=== PATIENT | female | born 1945 | race Caucasian/White ===

== ENCOUNTER 2016-09-29 23:16 | Emergency (ER) | payer MEDICARE, MEDICAID ==
[~2016-09-29] VITALS: Ht 167.6 cm; Wt 90.7 kg
[~2016-09-29 23:16] MED LIST: CIPRO500 MG PO; FLAGYL500 MG PO
[2016-09-29 23:39] LABS: BASO # 0.1 10*3/uL (0.0-0.1); BASO % 1.4 % (0.0-1.0); EOS # 0.3 10*3/uL (0.0-0.4); EOS % 2.8 % (1.0-4.0); HEMATOCRIT 44.8 % (37.0-47.0); HEMOGLOBIN 14.8 g/dl (12.0-16.0); LYMPH # 3.1 10*3/uL (1.3-4.4); LYMPH % 33.2 % (27.0-41.0); MEAN CELL VOLUME 88.7 fl (81.0-99.0); MEAN CORPUSCULAR HGB 29.3 pg (27.0-31.0); MEAN PLATELET VOLUME 9.8 fl (9.6-12.3); MONO # 0.7 10*3/uL (0.1-1.0); MONO % 7.2 % (3.0-9.0); NEUT # 5.2 10*3/uL (2.3-7.9); PLATELET COUNT AUTOMATED 188 10*3/uL (130-400); RED BLOOD COUNT 5.05 10*6/uL (4.10-5.10); RED CELL DISTRI WIDTH 14.1 % (0-14.5); WHITE BLOOD COUNT 9.4 10*3/uL (4.8-10.8)
[2016-09-29 23:55] LABS: ALBUMIN 3.7 gm/dl (3.1-4.5); ALKALINE PHOSPHATASE 98 U/L (45-117); BILIRUBIN, TOTAL 0.3 mg/dl (0.2-1.0); BUN 14 mg/dl (7-24); CARBON DIOXIDE 25 mmol/L (21-32); CHLORIDE 108 mmol/L (98-107); EST GLOM FILT AFRICAN AMERICAN > 60 ml/min; GLUCOSE 118 mg/dL (65-99); POTASSIUM 3.9 mmol/L (3.5-5.1); SGOT/AST 17 IU/L (3-35); SGPT/ALT 24 U/L (12-78); SODIUM 142 mmol/L (136-145); TOTAL PROTEIN 7.7 gm/dL (6.4-8.2)
[2016-09-30] MEDS ORDERED: PERCOCET 325 MG1 TA2 PO (00:38)
[2016-09-30] MEDS ORDERED: MACROBID100 M1 PO (00:38)
[2016-09-30] MEDS ORDERED: FLOMAX0.4 MG PO (00:38)
[2016-09-30] MEDS ORDERED: ZOFRAN4 MG PO (00:38)
[2016-09-30 01:30] LABS: BILIRUBIN NEGATIVE (NEGATIVE); BLOOD TRACE-INTACT (NEGATIVE); CLARITY CLEAR (CLEAR); COLOR YELLOW (YELLOW); GLUCOSE NEGATIVE (NEGATIVE); KETONE NEGATIVE (NEGATIVE); LEUKO ESTERASE NEGATIVE (NEGATIVE); NITRITE NEGATIVE (NEGATIVE); PH 6.5 (5.0-9.0); PROTEIN NEGATIVE (NEGATIVE); UROBILINOGEN 0.2 E.U./dl (0.2-1.0)
[2016-09-30 01:38] LABS: EPITHELIAL CELLS 0-5; RBC 0-2 rbc/hpf (0-2); URINE REFLEX COMMENT NO (NO)
[2016-10-14] MEDS ORDERED: PERCOCET 325 MG1 TA2 PO (17:58)
== END 2016-09-30 01:18 | disposition home or self-care (01) ==
LOC: ED 23:16
PROVIDERS: Nurse Practitioner Family
DX: N20.0 Calculus of kidney (principal); N13.30 Unspecified hydronephrosis; R03.0 Elevated blood-pressure reading, without diagnosis of hypertension; Z85.038 Personal history of other malignant neoplasm of large intestine

== ENCOUNTER 2016-10-09 19:54 | Emergency (ER) | payer MEDICARE, MEDICAID ==
[~2016-10-09] VITALS: Ht 165.1 cm; Wt 72.6 kg
[~2016-10-09 19:54] MED LIST changes: +FLOMAX0.4 MG PO; +MACROBID100 M1 PO; +PERCOCET 325 MG1 TA2 PO; +ZOFRAN4 MG PO
[2016-10-09] MEDS ORDERED: PERCOCET 325 MG1 TA2 PO (20:30)
[2016-10-14] MEDS ORDERED: PERCOCET 325 MG1 TA2 PO (17:58)
== END 2016-10-09 20:38 | disposition home or self-care (01) ==
LOC: ED 19:54
DX: G89.29 Other chronic pain (principal); M54.5 Low back pain; C34.90 Malignant neoplasm of unspecified part of unspecified bronchus or lung; F17.200 Nicotine dependence, unspecified, uncomplicated; Z87.442 Personal history of urinary calculi

== ENCOUNTER 2016-10-16 15:02 | Emergency (ER) | payer MEDICARE, MEDICAID ==
[~2016-10-16] VITALS: Ht 165.1 cm; Wt 72.6 kg
[2016-10-16] MEDS ORDERED: ACETAMINOPHEN-O1 TAB PO (15:23)
[2016-10-16 15:54] LABS: BASO # 0.1 10*3/uL (0.0-0.1); BASO % 1.2 % (0.0-1.0); EOS # 0.3 10*3/uL (0.0-0.4); EOS % 3.6 % (1.0-4.0); HEMATOCRIT 42.7 % (37.0-47.0); HEMOGLOBIN 13.7 g/dl (12.0-16.0); LYMPH # 2.2 10*3/uL (1.3-4.4); LYMPH % 25.9 % (27.0-41.0); MEAN CELL VOLUME 90.3 fl (81.0-99.0); MEAN CORPUSCULAR HGB CONC 32.1 g/dl (33.0-37.0); MEAN PLATELET VOLUME 9.7 fl (9.6-12.3); MONO # 0.5 10*3/uL (0.1-1.0); MONO % 6.2 % (3.0-9.0); NEUT # 5.4 10*3/uL (2.3-7.9); NEUT % 62.7 % (47.0-73.0); PLATELET COUNT AUTOMATED 209 10*3/uL (130-400); RED BLOOD COUNT 4.73 10*6/uL (4.10-5.10); RED CELL DISTRI WIDTH 14.2 % (0-14.5); WHITE BLOOD COUNT 8.6 10*3/uL (4.8-10.8)
[2016-10-16 16:09] LABS: ALBUMIN 3.6 gm/dl (3.1-4.5); ALKALINE PHOSPHATASE 96 U/L (45-117); BILIRUBIN, TOTAL 0.2 mg/dl (0.2-1.0); BUN 21 mg/dl (7-24); CARBON DIOXIDE 25 mmol/L (21-32); CHLORIDE 107 mmol/L (98-107); EST GLOM FILT AFRICAN AMERICAN > 60 ml/min; GLUCOSE 122 mg/dL (65-99); SGOT/AST 29 IU/L (3-35); SGPT/ALT 29 U/L (12-78); SODIUM 141 mmol/L (136-145); TOTAL PROTEIN 7.2 gm/dL (6.4-8.2)
== END 2016-10-16 17:32 | disposition home or self-care (01) ==
LOC: ED 15:02
PROVIDERS: Registered Nurse
DX: M54.5 Low back pain (principal); F17.200 Nicotine dependence, unspecified, uncomplicated; Z79.899 Other long term (current) drug therapy; C34.91 Malignant neoplasm of unspecified part of right bronchus or lung; N20.0 Calculus of kidney

== ENCOUNTER 2016-10-22 18:03 | Emergency (ER) | payer MEDICARE, MEDICAID ==
[~2016-10-22] VITALS: Wt 75.7 kg
[~2016-10-22 18:03] MED LIST changes: +ACETAMINOPHEN-O1 TAB PO
== END 2016-10-22 19:51 | disposition home or self-care (01) ==
LOC: ED 18:03
DX: G89.29 Other chronic pain (principal); F17.200 Nicotine dependence, unspecified, uncomplicated

== ENCOUNTER 2017-06-19 10:50 | Inpatient (IN) | payer MEDICARE, MEDICAID ==
[~2017-06-19] VITALS: Ht 167.6 cm; Wt 89.6 kg
[2017-06-19 10:50] VITALS: BP 112/77
[2017-06-19 11:24] LABS: BASO # 0.1 10*3/uL (0.0-0.1); BASO % 0.6 % (0.0-1.0); EOS # 0.1 10*3/uL (0.0-0.4); EOS % 0.3 % (1.0-4.0); HEMOGLOBIN 13.7 g/dl (12.0-16.0); LYMPH # 1.4 10*3/uL (1.3-4.4); LYMPH % 7.7 % (27.0-41.0); MEAN CELL VOLUME 90.9 fl (81.0-99.0); MEAN CORPUSCULAR HGB 29.7 pg (27.0-31.0); MEAN CORPUSCULAR HGB CONC 32.6 g/dl (33.0-37.0); MEAN PLATELET VOLUME 9.9 fl (9.6-12.3); MONO % 5.8 % (3.0-9.0); NEUT # 15.2 10*3/uL (2.3-7.9); NEUT % 85.2 % (47.0-73.0); PLATELET COUNT AUTOMATED 207 10*3/uL (130-400); RED BLOOD COUNT 4.62 10*6/uL (4.10-5.10); RED CELL DISTRI WIDTH 13.6 % (0-14.5); WHITE BLOOD COUNT 17.9 10*3/uL (4.8-10.8)
[2017-06-19 11:33] LABS: ACT PARTIAL THROMBO TIME 23.4 SECONDS (20.8-31.5)
[2017-06-19 11:45] LABS: ALBUMIN 3.3 gm/dl (3.1-4.5); ALKALINE PHOSPHATASE 88 U/L (45-117); BUN 19 mg/dl (7-24); CHLORIDE 102 mmol/L (98-107); CREATININE 0.87 mg/dL (0.55-1.02); LIPASE 58 U/L (73-393); MAGNESIUM 2.6 mg/dL (1.5-2.1); POTASSIUM 3.6 mmol/L (3.5-5.1); SGOT/AST 16 IU/L (3-35); SGPT/ALT 15 U/L (12-78); SODIUM 136 mmol/L (136-145); TOTAL PROTEIN 8.1 gm/dL (6.4-8.2)
[2017-06-19 11:46] LABS: TROPONIN I < 0.015 ng/ml (<0.045)
[2017-06-19 12:45] VITALS: BP 112/76
[2017-06-19 14:22] VITALS: BP 118/80
--- NOTE | 2017-06-19 14:58 | NUR ---
Time: 1440 A 71 year old FEMALE admitted to 5E under services of JAY MARINA DO. Pt. arrived via bed from ER. Chief complaint: SEPSIS AND SOB. JOHNNY TROTTER
[2017-06-19 15:00] VITALS: BP 113/85
[2017-06-19] MEDS ORDERED: DIAZEPAM5 MG PO (15:09)
--- NOTE | 2017-06-19 15:12 | NUR ---
NOTIFIED OF MED LIST BEING UP TO DATE. AND NEED FOR WOUND CARE ORDERS FOR WOUND TO LEFT SHOULDER
[2017-06-19 16:00] VITALS: BP 136/60
[2017-06-19 20:00] VITALS: BP 145/80
--- NOTE | 2017-06-19 20:17 | NUR ---
NORCO GIVEN PER ORDER FOR PAIN IN THROAT RATED "7". SEE NOV.
--- NOTE | 2017-06-19 21:00 | NUR ---
CATHY HELPING WITH THROAT PAIN PER PT.
[2017-06-20] VITALS: BP 128/89
--- NOTE | 2017-06-20 06:13 | NUR ---
CATHY GIVEN PER ORDER FOR PAIN THROAT RATE "8". SEE NOV.
[2017-06-20 06:30] LABS: BASO % 0.1 % (0.0-1.0); HEMATOCRIT 38.7 % (37.0-47.0); HEMOGLOBIN 12.5 g/dl (12.0-16.0); LYMPH # 0.9 10*3/uL (1.3-4.4); LYMPH % 9.7 % (27.0-41.0); MEAN CELL VOLUME 91.1 fl (81.0-99.0); MEAN CORPUSCULAR HGB 29.4 pg (27.0-31.0); MEAN CORPUSCULAR HGB CONC 32.3 g/dl (33.0-37.0); MEAN PLATELET VOLUME 10.3 fl (9.6-12.3); MONO # 0.2 10*3/uL (0.1-1.0); MONO % 1.7 % (3.0-9.0); NEUT # 8.3 10*3/uL (2.3-7.9); NEUT % 87.6 % (47.0-73.0); PLATELET COUNT AUTOMATED 180 10*3/uL (130-400); RED BLOOD COUNT 4.25 10*6/uL (4.10-5.10); RED CELL DISTRI WIDTH 13.2 % (0-14.5); WHITE BLOOD COUNT 9.5 10*3/uL (4.8-10.8)
[2017-06-20 07:05] LABS: ALKALINE PHOSPHATASE 82 U/L (45-117); BUN 19 mg/dl (7-24); CHLORIDE 106 mmol/L (98-107); CHOLESTEROL 137 mg/dL (<200); CREATININE 0.62 mg/dL (0.55-1.02); FREE T4 1.42 ng/dl (0.76-1.46); HDL CHOLESTEROL 37 mg/dl (40-60); LDL CHOLESTEROL 86 mg/dL (9-159); MAGNESIUM 2.4 mg/dL (1.5-2.1); PHOSPHOROUS 2.4 mg/dL (2.5-4.9); POTASSIUM 4.1 mmol/L (3.5-5.1); SGOT/AST 26 IU/L (3-35); SGPT/ALT 19 U/L (12-78); SODIUM 139 mmol/L (136-145); TOTAL PROTEIN 7.3 gm/dL (6.4-8.2); TRIGLYCERIDES 70 mg/dl (<150); VLDL CHOLESTEROL 14 mg/dL (6-40)
[2017-06-20 07:08] LABS: ACT PARTIAL THROMBO TIME 23.4 SECONDS (20.8-31.5)
[2017-06-20 07:09] LABS: THYROID STIM HORMONE (HS) 0.227 uIU/ml (0.358-4.75)
[2017-06-20 07:49] LABS: VITAMIN D, 25-HYDROXY 9.2 ng/mL (30-100)
[2017-06-20 08:00] VITALS: BP 138/66; BP 140/78
--- NOTE | 2017-06-20 08:00 | NUR ---
HOB ELEVATED, EASY RESPIRATIONS WITH SKIN WARM AND DRY. PATIENT STATES PAIN MEDICATION GIVEN PREVIOUSLY EFFECTIVE AND RELIEVING THROAT DISCOMFORT. DENIES SOB OR CHEST PAIN AT PRESENT TIME. SEE SHIFT ASSESSMENT.
--- NOTE | 2017-06-20 09:00 | NUR ---
Manager Of Information in to talk to patient. Patient states lives at home with brother and sister in law. There are few steps in the home. Physician: moreno Pharmacy: [facility] Home health services: none Patient's level of ADLs: INDEPENDENT Patient has working utilities: all working DME: none Follow-up physician's appointment after d/c: will be made by hospitalist nurse direct upon discharge Does patient want to access PORTAL?: no Discharge plan discussed with patient, patient lives at home with brother and sister in law, she is independent in adls and ambulation, drives, patient states she will be going back home and denies any home needs. AIDEN MORALES
--- NOTE | 2017-06-20 10:59 | NUR ---
NAVDEEP JOLLY [id number] Please refer to the physician's history and physical for past medical history, comorbid conditions, and allergies. Diagnosis: SEPSIS Morales Score: 23,LOW OR NO RISK WOUND DESCRIPTIONS: Location of the wound: LATERAL LEFT SHOULDER Type of wound: SKIN TEAR Thickness: Full Size: 3.0CM X 0.7CM X 0.1CM Tunneling: NONE Undermining: NONE Sinus Tract: NONE Presence of Exudate: serosanguineous Amount: Light Color: Yellow Odor: None Periwound Skin Appearance: Normal Wound edges: APPROXIMATED Pain (associated with wound): NONE AT TIME OF ASSESSMENT How does patient state this happened? PT STATED SHE SCRATCHED THOSE AREAS. Location of the wound: left medial shoulder Type of wound: skin tear Thickness: Full Size: 1.1cm x 1.1cm x 0.1cm Tunneling: none Undermining: none Sinus Tract: none Presence of Exudate: serosanguineous Amount: Light Color: Yellow Odor: None Periwound Skin Appearance: Normal Wound edges: approximated Pain (associated with wound): none at time of assessment How does patient state this happened? pt stated she scratched herself patient has multiple scabs noted to bilateral arms, left eyebrow, bridge of nose, left side of the neck. Surface the patient is resting on: Isoflex SKIN PREVENTION RECOMMENDATION: 1. Pressure redistribution support surface as appropriate 2. Elevate heels 3. Remove boots/TEDS every shift and reapply 4. Head of bed 30 degrees as tolerated 5. Assess nutrition and hydration 6. Manage moisture 7. Avoid the use of containment devices while in bed 8. Use absorptive products on surfaces limit layers of linens on bed 9. Turn and reposition every 1-2 hours in bed and every 1 hour in chair as tolerated 10. Weight shifts every 15 minutes while up in chair 11. Offloading with pillows or device to keep heels elevated off bed 12. Monitor skin at least every shift 13. Inspect under medical devices twice a day WOUND TREATMENT RECOMMENDATIONS: Continue current orders.
--- NOTE | 2017-06-20 13:43 | NUR ---
PATIENT C/O BACK PAIN, RATES IT 06/09. REPOSITIONING OFFERED, INEFFECTIVE. NORCO 5/325 MG TABLET ADMINISTERED PO. WILL MONITOR FOR EFFECTIVENESS. ALL SAFETY MEASURES IN BED, PATIENT LYING ON BACK IN BED, HOB ELEVATED. CALL LIGHT IN REACH.
[2017-06-20 13:53] VITALS: BP 126/67
[2017-06-20 13:58] LABS: BILIRUBIN NEGATIVE (NEGATIVE); BLOOD NEGATIVE (NEGATIVE); CLARITY SL CLOUDY (CLEAR); COLOR YELLOW (YELLOW); GLUCOSE NEGATIVE (NEGATIVE); KETONE NEGATIVE (NEGATIVE); LEUKO ESTERASE NEGATIVE (NEGATIVE); NITRITE NEGATIVE (NEGATIVE); SPECIFIC GRAVITY 1.025 (1.005-1.030)
[2017-06-20 14:04] LABS: BACTERIA 2+; MUCOUS 1+; RBC 0-2 rbc/hpf (0-2)
--- NOTE | 2017-06-20 15:45 | NUR ---
PATIENT DENIES BACK PAIN AT THIS TIME. NORCO 5/325 MG TABLET EFFECTIVE. PATIENT RESTING PEACEFULLY IN BED. CALL LIGHT IN REACH.
[2017-06-20 16:00] VITALS: BP 122/85
--- NOTE | 2017-06-20 17:31 | NUR ---
PATIENT C/O GENERALIZED BODY PAIN, RATES IT A 10/10 ON PAIN SCALE. REPOSITIONING OFFERED, INEFFECTIVE. MORPHINE SULFATE 2 MG ADMINISTERED VIA IV PUSH. ALL SAFETY MEASURES IN PLACE. WILL MONITOR FOR EFFECTIVENESS. CALL LIGHT IN REACH.
--- NOTE | 2017-06-20 18:09 | NUR ---
SPOKE WITH DR. SARATH FRIEDMAN REGARDING PATIENT'S REQUEST FOR FLU SHOT. INFORMED HER THAT THIS RN SPOKE WITH PHARMACY REGARDING PATIENT'S MEDICAL HISTORY AND ADMITTING DIAGNOSIS. PER DR. FRIEDMAN, STAFF IS TO WAIT UNTIL TOMORROW AND A DECISION WILL BE MADE PRIOR TO DISCHARGE REGARDING ADMINISTRATION OF FLU VACCINE.
--- NOTE | 2017-06-20 18:50 | NUR ---
PATIENT STATES THAT MORPHINE SULFATE 2 MG EFFECTIVE, STATES PAIN IS NOW A 2/10. PATIENT IS RESTING IN BED, HOB ELEVATED. ALL SAFETY MEASURES IN PLACE. CALL LIGHT IN REACH.
[2017-06-20 20:00] VITALS: BP 111/59
--- NOTE | 2017-06-20 21:29 | NUR ---
Hep Lock discontinued. Site occluded. Site symptomatic. Pressure applied. Sterile dressing applied. IV started right wrist with #22 angiocath after 2nd attempts. The IV site was prepped with Chloraprep. Heparin lock attached. Sterile dressing applied. Patient tolerated precedure well. Procedure performed according to [facility] policy & procedure. JAYNE JUAREZ
[2017-06-21] VITALS: BP 125/73
--- NOTE | 2017-06-21 02:30 | NUR ---
C/O BACK PAIN RATED "7" MORPHINE GIVEN PER ORDER FOR PAIN.
--- NOTE | 2017-06-21 03:30 | NUR ---
MORPHINE EFFECTIVE FOR BACK PAIN PER PT.
--- NOTE | 2017-06-21 06:26 | NUR ---
MORPHINE GIVEN FOR BACK PAIN RATED "8" PER PT. SEE MAR.
--- NOTE | 2017-06-21 07:25 | NUR ---
MORPHINE EFFECTIVE FOR BACK PAIN PER PT. PT. WAS UP TO BATHROOM AND HAD MODERATE SOFT STOOL.
[2017-06-21 07:38] LABS: BASO % 0.2 % (0.0-1.0); HEMOGLOBIN 12.4 g/dl (12.0-16.0); LYMPH # 1.5 10*3/uL (1.3-4.4); LYMPH % 9.3 % (27.0-41.0); MEAN CORPUSCULAR HGB 29.2 pg (27.0-31.0); MEAN CORPUSCULAR HGB CONC 31.8 g/dl (33.0-37.0); MEAN PLATELET VOLUME 10.7 fl (9.6-12.3); MONO # 0.8 10*3/uL (0.1-1.0); MONO % 4.7 % (3.0-9.0); NEUT # 13.5 10*3/uL (2.3-7.9); NEUT % 84.4 % (47.0-73.0); PLATELET COUNT AUTOMATED 204 10*3/uL (130-400); RED BLOOD COUNT 4.24 10*6/uL (4.10-5.10); RED CELL DISTRI WIDTH 13.4 % (0-14.5)
[2017-06-21 07:57] LABS: BUN 24 mg/dl (7-24); CHLORIDE 106 mmol/L (98-107); CREATININE 0.64 mg/dL (0.55-1.02); POTASSIUM 4.5 mmol/L (3.5-5.1); SODIUM 137 mmol/L (136-145)
[2017-06-21 08:00] VITALS: BP 135/56
--- NOTE | 2017-06-21 09:00 | NUR ---
case management visits with patient, patient denies any home needs at this time
--- NOTE | 2017-06-21 09:21 | NUR ---
NORCO GIVEN PER ORDER FOR BACK PAIN. SEE MAR.
--- NOTE | 2017-06-21 10:20 | NUR ---
CATHY EFFECTIVE FOR BACK PER PT.
[2017-06-21] MEDS ORDERED: LEVAQUIN750 M1 PO (10:40)
--- NOTE | 2017-06-21 11:30 | NUR ---
Discharge instructions reviewed with patient/family. Patient receptive and verbalizes understanding. Follow-up care arranged. Written instructions given to patient/family. RAMILA BLACK
--- NOTE | 2017-06-21 11:36 | NUR ---
PT REFUSED DISCHARGE WOUND PHOTOS STATING SHE WANTS TO GO OUT AND SMOKE.
== END 2017-06-21 11:30 | disposition home or self-care (01) | DRG 871 ==
LOC: ED 10:50 → EDHOLD 12:59 → 5E 12:59
PROVIDERS: Emergency Medicine; Family Medicine Adult Medicine; Internal Medicine; ADMIT Internal Medicine
DX: A41.9 Sepsis, unspecified organism (principal); J18.9 Pneumonia, unspecified organism; J96.00 Acute respiratory failure, unspecified whether with hypoxia or hypercapnia; C34.11 Malignant neoplasm of upper lobe, right bronchus or lung; Z66 Do not resuscitate; F17.200 Nicotine dependence, unspecified, uncomplicated; Z51.5 Encounter for palliative care; R65.20 Severe sepsis without septic shock; E83.41 Hypermagnesemia; Z71.6 Tobacco abuse counseling; Z79.1 Long term (current) use of non-steroidal anti-inflammatories (NSAID); Z90.49 Acquired absence of other specified parts of digestive tract; Z90.710 Acquired absence of both cervix and uterus; Z98.49 Cataract extraction status, unspecified eye; Z80.9 Family history of malignant neoplasm, unspecified; Z82.49 Family history of ischemic heart disease and other diseases of the circulatory system; Z79.899 Other long term (current) drug therapy

== ENCOUNTER 2017-06-23 18:59 | Inpatient (IN) | payer MEDICARE, MEDICAID ==
[~2017-06-23] VITALS: Ht 167.6 cm; Wt 85.0 kg
[~2017-06-23 18:59] MED LIST changes: +DIAZEPAM5 MG PO; +LEVAQUIN750 M1 PO
[2017-06-23 19:18] VITALS: BP 144/95
[2017-06-23 20:01] VITALS: BP 134/78
[2017-06-23 20:21] LABS: BILIRUBIN NEGATIVE (NEGATIVE); BLOOD NEGATIVE (NEGATIVE); CLARITY SL CLOUDY (CLEAR); COLOR YELLOW (YELLOW); GLUCOSE NEGATIVE (NEGATIVE); KETONE NEGATIVE (NEGATIVE); LEUKO ESTERASE NEGATIVE (NEGATIVE); NITRITE NEGATIVE (NEGATIVE); PH 8.5 (5.0-9.0); SPECIFIC GRAVITY 1.015 (1.005-1.030); UROBILINOGEN 0.2 E.U./dl (0.2-1.0)
--- NOTE | 2017-06-23 20:32 | NUR ---
PT TO CT AT THIS TIME.
[2017-06-23 20:35] LABS: BACTERIA TRACE; RBC 0-2 rbc/hpf (0-2)
[2017-06-23 20:51] LABS: HEMATOCRIT 42.1 % (37.0-47.0); HEMOGLOBIN 13.7 g/dl (12.0-16.0); MEAN CELL VOLUME 89.8 fl (81.0-99.0); MEAN CORPUSCULAR HGB 29.2 pg (27.0-31.0); MEAN CORPUSCULAR HGB CONC 32.5 g/dl (33.0-37.0); PLATELET COUNT AUTOMATED 207 10*3/uL (130-400); RED BLOOD COUNT 4.69 10*6/uL (4.10-5.10); RED CELL DISTRI WIDTH 13.4 % (0-14.5); WHITE BLOOD COUNT 10.8 10*3/uL (4.8-10.8)
[2017-06-23 21:06] LABS: ALBUMIN 2.8 gm/dl (3.1-4.5); ALKALINE PHOSPHATASE 107 U/L (45-117); BUN 14 mg/dl (7-24); CHLORIDE 99 mmol/L (98-107); CREATININE 0.78 mg/dL (0.55-1.02); LIPASE 71 U/L (73-393); MAGNESIUM 2.3 mg/dL (1.5-2.1); POTASSIUM 3.5 mmol/L (3.5-5.1); SGOT/AST 23 IU/L (3-35); SGPT/ALT 40 U/L (12-78); SODIUM 138 mmol/L (136-145); TOTAL PROTEIN 6.5 gm/dL (6.4-8.2)
[2017-06-23 21:12] LABS: MICROCYTOSIS SLIGHT; PLATELET SUFFICIENCY NORMAL (NORMAL); TOTAL CELLS COUNTED 100 #CELLS
[2017-06-23 21:13] LABS: POLYCHROMASIA SLIGHT
[2017-06-23 22:31] VITALS: BP 140/76
--- NOTE | 2017-06-23 23:00 | NUR ---
CCIAA 72, admitted to , under the services of ALTAGRACIA Jay DO with a diagnosis of Diverticulitis Large Intestine. Chief complaint is Abdominal Pain. Patient arrived via stretcher from ER. Monitor applied. Initial assessment completed. Vital signs taken and recorded. ALTAGRACIA JAY DO notified of admission to the unit. Orders received. See assessment for past medical history, medications and allergies. Patient and/or family oriented to unit. [facility] visitation policy reviewed. Medication Reconciliation completed, Pharmacy verified and Physician notified of patients arrival. Clothing/patient valuable form completed. ANDRES HATFIELD
[2017-06-24] VITALS: BP 159/88
--- NOTE | 2017-06-24 01:36 | NUR ---
MORPHINE GIVEN FOR LOWER QUADRANT ABDOMINAL PAIN 06/09. WILL MONITOR.
--- NOTE | 2017-06-24 02:10 | NUR ---
MORPHINE EFFECTIVE, PATIENT ASLEEP WITH RESPIRATIONS >12
[2017-06-24 03:57] VITALS: BP 158/88
--- NOTE | 2017-06-24 04:53 | NUR ---
NORCO GIVEN FOR LOWER QUADRANT ABDOMINAL PAIN RATED 9/10. WILL MONITOR.
[2017-06-24 06:26] LABS: HEMATOCRIT 42.8 % (37.0-47.0); HEMOGLOBIN 14.1 g/dl (12.0-16.0); MEAN CELL VOLUME 91.1 fl (81.0-99.0); MEAN CORPUSCULAR HGB CONC 32.9 g/dl (33.0-37.0); MEAN PLATELET VOLUME 9.9 fl (9.6-12.3); PLATELET COUNT AUTOMATED 209 10*3/uL (130-400); RED CELL DISTRI WIDTH 13.3 % (0-14.5); WHITE BLOOD COUNT 11.3 10*3/uL (4.8-10.8)
[2017-06-24 06:51] LABS: ALBUMIN 2.6 gm/dl (3.1-4.5); ALKALINE PHOSPHATASE 70 U/L (45-117); BUN 10 mg/dl (7-24); CHLORIDE 104 mmol/L (98-107); CREATININE 0.59 mg/dL (0.55-1.02); MAGNESIUM 2.3 mg/dL (1.5-2.1); PHOSPHOROUS 2.8 mg/dL (2.5-4.9); POTASSIUM 3.5 mmol/L (3.5-5.1); SGOT/AST 20 IU/L (3-35); SGPT/ALT 31 U/L (12-78); SODIUM 141 mmol/L (136-145); TOTAL PROTEIN 6.1 gm/dL (6.4-8.2)
[2017-06-24 07:07] LABS: PLATELET SUFFICIENCY NORMAL (NORMAL); TOTAL CELLS COUNTED 100 #CELLS
[2017-06-24 08:00] VITALS: BP 143/78
--- NOTE | 2017-06-24 09:23 | NUR ---
PT REQUESTED AND GIVEN MORPHINE FOR C/O LLQ PAIN . PT RATES PAIN 6/10. WILL MONITOR
--- NOTE | 2017-06-24 11:30 | NUR ---
PT REQUESTED AND GIVEN MORPHINE FOR C/O LLQ PAIN. PT RATES PAIN 5/10. WILL MONITOR
--- NOTE | 2017-06-24 11:37 | NUR ---
Patient requested discussing options/hospice. In to see patient, she stated she just wants to look into a hospice company to keep her comfortable, she is not interested in any treatment. She lives with her brother and sister who do provide 24 hour care. I provided her with a list of hospice agencies. She stated she is not familiar with any of the hospice companies in the area and just requested one that is close by. I contacted Zohra from [facility] hospice and she stated she would contact someone in admissions for a referral and possibly send someone to talk to her this afternoon.
[2017-06-24 12:00] VITALS: BP 150/86
--- NOTE | 2017-06-24 12:30 | NUR ---
MORPHINE HELPED A LITTLE. WILL MONITOR
--- NOTE | 2017-06-24 14:00 | NUR ---
[facility] hosp[facility] called and stated they will have a nurse here to discuss options with the patient between 1:30 and 2:00 PM.
--- NOTE | 2017-06-24 14:10 | NUR ---
Medicated po [place] for c/p pain.
--- NOTE | 2017-06-24 15:13 | NUR ---
PT STATES THAT [place] HELPED . WILL MONITOR
--- NOTE | 2017-06-24 15:43 | NUR ---
IV started right forearm with #22 angiocath after 1 attempts. The IV site was prepped with Chloraprep. Heparin lock attached. Sterile dressing applied. Patient tolerated precedure well. Procedure performed according to [facility] policy & procedure. EMILEE OLIVAS
[2017-06-24 16:00] VITALS: BP 139/76
--- NOTE | 2017-06-24 17:38 | NUR ---
PT REQUESTED AND GIVEN MORPHINE FOR C/O LLQ PAIN . WILL MONITOR . PT RATES PAIN 5/10
--- NOTE | 2017-06-24 18:39 | NUR ---
PT RESTING IN BED, EYES CLOSED. MORPHINE APPEARS EFFECTIVE, WILL MONITOR
[2017-06-24 20:00] VITALS: BP 155/85
--- NOTE | 2017-06-24 21:42 | NUR ---
NORCO GIVEN FOR ABDOMINAL PAIN. WILL MONITOR
--- NOTE | 2017-06-24 22:15 | NUR ---
PATIENT STATED NORCO HELPED RELIEVE PAIN A LITTLE.
--- NOTE | 2017-06-24 23:22 | NUR ---
MORPHINE GIVEN FOR LEFT LOWER QUADRANT ABDOMINAL PAIN RATED 9/10. WILL MONITOR
[2017-06-25] VITALS: BP 155/77
--- NOTE | 2017-06-25 03:50 | NUR ---
MORPHINE GIVEN PER ORDER FOR LEFT SIDE ABD PAIN RATED. "8" SEE MAR.
--- NOTE | 2017-06-25 04:45 | NUR ---
MORPHINE EFFECTIVE FOR ABD PAIN PT. SAYS IT "HELPS FOR A LITTLE WHILE THEN THE PAIN COMES BACK".
[2017-06-25 08:00] VITALS: BP 138/73
--- NOTE | 2017-06-25 08:00 | NUR ---
MEDICATED WITH NORCO FOR LLQ ABD PAIN SHE RATES A 6 ON THE PAIN SCALE.
--- NOTE | 2017-06-25 10:00 | NUR ---
AM MEDS TAKEN. NO COMPLAINTS OF PAIN AT PRESENT.
[2017-06-25 12:00] VITALS: BP 149/67
--- NOTE | 2017-06-25 13:04 | NUR ---
PATIENT MEDICATED WITH BACK AND SHOULDER PAIN SHE RATES A 10 ON THE PAIN SCALE.
--- NOTE | 2017-06-25 16:13 | NUR ---
MEDICATED WITH MORPHINE FOR BACK AND SHOULDER PAIN SHE RATES AN 8 ON THE PAIN SCALE.
[2017-06-25 20:00] VITALS: BP 137/70
--- NOTE | 2017-06-25 20:05 | NUR ---
MORPHINE GIVEN PER ORDER FOR LEFT ABD, BACK AND CHEST PAIN RATED "9" SEE MAR. PT. SAID SHE HAD A STOOL.
--- NOTE | 2017-06-25 22:49 | NUR ---
JUAN DIEGOCO GIVEN PER ORDER FOR BACK AND LEFT SIDES INTERMITTENT ABD PAIN RATED. "6". SEE MAR.
--- NOTE | 2017-06-25 23:30 | NUR ---
NORCO NOT EFFECTIVE FOR PAIN PER PT.
--- NOTE | 2017-06-25 23:31 | NUR ---
UP TO BATHROOM AND HAD LARGE BROWN SOFT LOOSE STOOL.
[2017-06-26] VITALS: BP 149/79
--- NOTE | 2017-06-26 00:44 | NUR ---
PT RATES PAIN 9 OF TEN. PAIN IN ABDOMEN AND LOWER BACK. INTERMITTENT STABBING PAIN. PT GIVEN MORPHINE. SEE EMAR.
--- NOTE | 2017-06-26 01:30 | NUR ---
RESTING QUIETLY. MORPHINE EFFECTIVE FOR PAIN PER PT.
--- NOTE | 2017-06-26 04:05 | NUR ---
C/O LEFT ABD PAIN RATED "8" OCCAS. SHARP PAINS. MORPHINE GIVEN PER ORDER FOR PAIN. SEE MAR.
--- NOTE | 2017-06-26 05:00 | NUR ---
MORPHINE EFFECTIVE FOR PAIN PER PT.
[2017-06-26 07:10] LABS: HEMATOCRIT 40.9 % (37.0-47.0); HEMOGLOBIN 13.5 g/dl (12.0-16.0); MEAN CELL VOLUME 90.5 fl (81.0-99.0); MEAN CORPUSCULAR HGB 29.9 pg (27.0-31.0); MEAN PLATELET VOLUME 10.1 fl (9.6-12.3); PLATELET COUNT AUTOMATED 194 10*3/uL (130-400); RED BLOOD COUNT 4.52 10*6/uL (4.10-5.10); RED CELL DISTRI WIDTH 13.6 % (0-14.5); WHITE BLOOD COUNT 9.4 10*3/uL (4.8-10.8)
[2017-06-26 07:18] LABS: ALBUMIN 2.7 gm/dl (3.1-4.5); ALKALINE PHOSPHATASE 72 U/L (45-117); BUN 5 mg/dl (7-24); CHLORIDE 105 mmol/L (98-107); CREATININE 0.57 mg/dL (0.55-1.02); POTASSIUM 3.9 mmol/L (3.5-5.1); SGOT/AST 17 IU/L (3-35); SGPT/ALT 23 U/L (12-78); SODIUM 142 mmol/L (136-145); TOTAL PROTEIN 6.3 gm/dL (6.4-8.2)
--- NOTE | 2017-06-26 07:20 | NUR ---
MORPHINE GIVEN PER ORDER FOR BACK PAIN RATED "8". SEE MAR.
[2017-06-26 07:55] LABS: PLATELET SUFFICIENCY NORMAL (NORMAL); TOTAL CELLS COUNTED 100 #CELLS
[2017-06-26 08:00] VITALS: BP 158/75
[2017-06-26] MEDS ORDERED: FLAGYL500 MG PO (08:42)
[2017-06-26] MEDS ORDERED: CIPRO500 MG PO (08:46)
[2017-06-26 11:48] VITALS: BP 160/80
--- NOTE | 2017-06-26 13:23 | NUR ---
REMOVED LFA AND RIGHT THUMB HEP LOCK BEFORE DISCHARGE. Discharge instructions reviewed with patient/family. Patient receptive and verbalizes understanding. Follow-up care arranged. Written instructions given to patient/family. TERESA HYLTON
== END 2017-06-26 13:23 | disposition home or self-care (01) | DRG 392 ==
LOC: ED 18:59 → 5E 21:30 → EDHOLD 21:30 → 5E 21:42
PROVIDERS: Emergency Medicine Emergency Medical Services; Hospitalist; Registered Nurse; ADMIT Internal Medicine
DX: K57.32 Diverticulitis of large intestine without perforation or abscess without bleeding (principal); E44.0 Moderate protein-calorie malnutrition; J96.12 Chronic respiratory failure with hypercapnia; C34.11 Malignant neoplasm of upper lobe, right bronchus or lung; Z66 Do not resuscitate; Z51.5 Encounter for palliative care; R73.9 Hyperglycemia, unspecified; E83.51 Hypocalcemia; E83.41 Hypermagnesemia; Z71.6 Tobacco abuse counseling; Z72.0 Tobacco use; Z85.3 Personal history of malignant neoplasm of breast; Z88.0 Allergy status to penicillin; Z79.899 Other long term (current) drug therapy; Z90.710 Acquired absence of both cervix and uterus; Z90.49 Acquired absence of other specified parts of digestive tract; Z98.49 Cataract extraction status, unspecified eye; Z80.9 Family history of malignant neoplasm, unspecified; Z82.49 Family history of ischemic heart disease and other diseases of the circulatory system; Z68.31 Body mass index [BMI] 31.0-31.9, adult

== ENCOUNTER 2017-09-19 22:01 | Inpatient (IN) | payer MEDICARE, MEDICAID ==
[~2017-09-19] VITALS: Ht 165.1 cm; Wt 81.9 kg
[2017-09-19 22:09] VITALS: BP 144/76
--- NOTE | 2017-09-19 22:14 | NUR ---
PT HAS SCABBED OVER LESIONS ON UPPER RIGHT ARM AND BACK AREA.PT REPORTS SHE HAS ANXIETY AND PICKS AND SCRATCHES AT HER SKIN.PT ALSO HAS RASH UNDER BREAST AREA.
[2017-09-19 22:26] VITALS: BP 136/71
[2017-09-19 22:43] LABS: BASO # 0.1 10*3/uL (0.0-0.1); BASO % 0.7 % (0.0-1.0); EOS # 0.2 10*3/uL (0.0-0.4); EOS % 1.6 % (1.0-4.0); HEMATOCRIT 44.8 % (37.0-47.0); HEMOGLOBIN 14.6 g/dl (12.0-16.0); LYMPH # 2.8 10*3/uL (1.3-4.4); LYMPH % 22.5 % (27.0-41.0); MEAN CELL VOLUME 88.4 fl (81.0-99.0); MEAN CORPUSCULAR HGB 28.8 pg (27.0-31.0); MEAN CORPUSCULAR HGB CONC 32.6 g/dl (33.0-37.0); MEAN PLATELET VOLUME 9.9 fl (9.6-12.3); MONO # 0.7 10*3/uL (0.1-1.0); NEUT # 8.4 10*3/uL (2.3-7.9); NEUT % 68.9 % (47.0-73.0); PLATELET COUNT AUTOMATED 200 10*3/uL (130-400); RED BLOOD COUNT 5.07 10*6/uL (4.10-5.10); RED CELL DISTRI WIDTH 13.1 % (0-14.5); WHITE BLOOD COUNT 12.3 10*3/uL (4.8-10.8)
[2017-09-19 22:58] LABS: INTERNATIONAL NORM RATIO 0.9 (2.0-3.5)
[2017-09-19 23:00] LABS: ALBUMIN 3.4 gm/dl (3.1-4.5); ALKALINE PHOSPHATASE 93 U/L (45-117); BUN 10 mg/dl (7-24); CHLORIDE 104 mmol/L (98-107); CREATININE 0.68 mg/dL (0.55-1.02); LIPASE 71 U/L (73-393); POTASSIUM 3.4 mmol/L (3.5-5.1); SGOT/AST 15 IU/L (3-35); SGPT/ALT 15 U/L (12-78); SODIUM 137 mmol/L (136-145); TOTAL PROTEIN 7.7 gm/dL (6.4-8.2)
[2017-09-19 23:02] LABS: TROPONIN I < 0.015 ng/ml (<0.045)
--- NOTE | 2017-09-19 23:30 | NUR ---
PT AMBULATORY TO AND FROM RESTROOM.PT HAVING INCREASED SOB WITH EXERTION.PT PLACED ON 2L O2 VIA NC FOR COMFORT.
--- NOTE | 2017-09-19 23:35 | NUR ---
PT REPORTS TYLENOL MEDICATION DID NOT TOUCH HER PAIN WITH HER HEADACHE.ZHANNA HILTON NOTIFIED.
[2017-09-19 23:38] VITALS: BP 118/73
[2017-09-20 00:30] VITALS: BP 147/67
--- NOTE | 2017-09-20 00:30 | NUR ---
Time: 29 A 72 year old FEMALE admitted to 5E under services of MELIZA JIMENEZ DO. Pt. arrived via bed from ER. Chief complaint: SOB, PNEUMONITIS. RAJWINDER PURDY J
--- NOTE | 2017-09-20 01:11 | NUR ---
DR. ZUNIGA NOTIFIED THAT PATIENT IS ON THE FLOOR AND MED REC IS UP TO DATE MUCH POSSIBLE AT THIS TIME. DR. ZUNIGA AWARE OF ESCORIATED SKIN UNDER THE RIGHT BREAST AND NYSTATIN CREAM ORDERED. NO FURTHER ORDERS GIVEN AT THIS TIME.
--- NOTE | 2017-09-20 01:30 | NUR ---
NURSING WASTE CHOPPER AWARE PATIENT HAS SEVERAL SCABBED AREAS ON LEFT SHOULDER, NECK AND RIGHT ARM. PATIENT REFUSING PICTURES UPON ASSESSMENT. NO FURTHER ACTION TAKEN AT THIS TIME.
--- NOTE | 2017-09-20 02:22 | NUR ---
PATIENT GIVEN NORCO PER PT REQUEST FOR HEADACHE PAIN RATED 6/10. CALL LIGHT WITHIN REACH. WILL CONTINUE TO MONITOR AND REASSESS.
--- NOTE | 2017-09-20 02:45 | NUR ---
PATIENT MEDICATED WITH MORPHINE AT THIS TIME FOR COMPLAINTS OF PAIN. PATIENT STATED THAT THE NORCO GIVEN AT 0200 WAS NOT EFFECTIVE. WILL CONTINUE TO MONITOR FOR EFFECTIVENESS.
[2017-09-20 06:27] LABS: HEMATOCRIT 42.8 % (37.0-47.0); HEMOGLOBIN 13.8 g/dl (12.0-16.0); MEAN CELL VOLUME 89.4 fl (81.0-99.0); MEAN CORPUSCULAR HGB 28.8 pg (27.0-31.0); MEAN CORPUSCULAR HGB CONC 32.2 g/dl (33.0-37.0); MEAN PLATELET VOLUME 10.2 fl (9.6-12.3); PLATELET COUNT AUTOMATED 190 10*3/uL (130-400); RED BLOOD COUNT 4.79 10*6/uL (4.10-5.10); RED CELL DISTRI WIDTH 13.1 % (0-14.5); WHITE BLOOD COUNT 11.3 10*3/uL (4.8-10.8)
[2017-09-20 06:47] LABS: ACT PARTIAL THROMBO TIME 23.9 SECONDS (20.8-31.5)
[2017-09-20 06:48] LABS: ALBUMIN 3.3 gm/dl (3.1-4.5); ALKALINE PHOSPHATASE 86 U/L (45-117); BUN 8 mg/dl (7-24); CHLORIDE 107 mmol/L (98-107); CREATININE 0.66 mg/dL (0.55-1.02); PHOSPHOROUS 2.9 mg/dL (2.5-4.9); POTASSIUM 3.7 mmol/L (3.5-5.1); SGOT/AST 28 IU/L (3-35); SGPT/ALT 22 U/L (12-78); SODIUM 140 mmol/L (136-145); TOTAL PROTEIN 7.4 gm/dL (6.4-8.2)
[2017-09-20 07:02] LABS: TOTAL CELLS COUNTED 100 #CELLS
[2017-09-20 07:03] LABS: PLATELET SUFFICIENCY NORMAL (NORMAL)
[2017-09-20 08:00] VITALS: BP 133/78
--- NOTE | 2017-09-20 08:05 | NUR ---
Hi Teacher in to talk to patient. Patient states lives at HOME with HER BROTHER AND [id number]. There are BASEMENT steps in the home. Physician: DR BOONE Pharmacy: [facility] Home health services: NONE Patient's level of ADLs: INDEPENDENT Patient has working utilities: YES DME: NONE Follow-up physician's appointment after d/c: WILL BE MADE PRIOR TO DC Does patient want to access PORTAL?: Discharge plan HOME. POPPY PETER
--- NOTE | 2017-09-20 09:23 | NUR ---
This nurse was asked to see patient for wounds located to shoulders and arms. Upon assessment patient states she has had these areas for a long time and they come and go. Patient states she gets them because she is a very nervous person and picks herself. She states that she only uses make up to cover them up and wants no other treatment. The areas are located to bilateral shoulders and arms they are in various stages of healing. Some are intact scabs while others are opening and have scant serous drainage noted. Patient's bilateral breast rash is noted. Patient is requesting treatment for breast but no other areas of her body.
--- NOTE | 2017-09-20 09:36 | NUR ---
MORPHINE GIVEN PER PATIENT REQUEST FOR C/O HEADACHE AND BACK ACHE. WILL MONITOR.
--- NOTE | 2017-09-20 10:23 | NUR ---
PATIENT STATES THE MORPHINE WAS NOT EFFECTIVE. SHE SAID SHE WILL TRY TO DO WITHOUT ANY ADDITIONAL PAIN MEDICATIONS.
--- NOTE | 2017-09-20 11:53 | NUR ---
Shift chart check completed.
[2017-09-20 12:00] VITALS: BP 113/68
[2017-09-20 16:00] VITALS: BP 114/54
--- NOTE | 2017-09-20 17:00 | NUR ---
PER PHYSICIAN, I ASKED THE PATIENT TO SPEAK WITH DR. PERRY BEFORE LEAVING [facility]. SHE SAID IT WAS FINE.
--- NOTE | 2017-09-20 17:46 | NUR ---
PATIENT C/O IRRITATED R EYE, SHE SAID IT WAS ITCHY AND PAINFUL TO OPEN. CALLED DR. HERNANDEZ, SEE NEW ORDERS.
--- NOTE | 2017-09-20 19:30 | NUR ---
PATIENT RESTING IN BED. PATIENT COMPLAINS OF EYE DISCOMFORT UPON ASSESSMENT. EYE IS REDDENED AND WATERING. ARTIFICIAL EYE DROPS ORDERED. PATIENT IS A&OX3 AND AMBULATORY WITH MINIMAL ASSISTANCE. PATIENT IS ON RA AND DENIES ANY SOB UPON ASSESSMENT. PATIENT HAS A PRODUCTIVE COUGH WITH YELLOW-GREEN SPUTUM. NO FURTHER REQUESTS AT THIS TIME. CALL LIGHT WITHIN REACH. SEE ASSESSMENT.
[2017-09-20 20:00] VITALS: BP 128/77
--- NOTE | 2017-09-20 21:40 | NUR ---
ARTIFICIAL EYE DROPS INSTILLED PER PT REQUEST FOR EYE DISCOMFORT. WILL CONTINUE TO MONITOR AND REASSESS.
[2017-09-21] VITALS: BP 126/67
[2017-09-21 06:07] LABS: BASO % 0.3 % (0.0-1.0); HEMATOCRIT 38.8 % (37.0-47.0); HEMOGLOBIN 12.8 g/dl (12.0-16.0); LYMPH # 0.9 10*3/uL (1.3-4.4); LYMPH % 10.4 % (27.0-41.0); MEAN CELL VOLUME 91.1 fl (81.0-99.0); MEAN PLATELET VOLUME 10.1 fl (9.6-12.3); MONO # 0.1 10*3/uL (0.1-1.0); MONO % 1.3 % (3.0-9.0); NEUT # 7.7 10*3/uL (2.3-7.9); NEUT % 87.2 % (47.0-73.0); PLATELET COUNT AUTOMATED 186 10*3/uL (130-400); RED BLOOD COUNT 4.26 10*6/uL (4.10-5.10); RED CELL DISTRI WIDTH 13.2 % (0-14.5); WHITE BLOOD COUNT 8.8 10*3/uL (4.8-10.8)
[2017-09-21 06:30] LABS: BUN 11 mg/dl (7-24); CHLORIDE 110 mmol/L (98-107); CREATININE 0.58 mg/dL (0.55-1.02); POTASSIUM 4.6 mmol/L (3.5-5.1); SODIUM 142 mmol/L (136-145)
[2017-09-21 08:00] VITALS: BP 120/83
--- NOTE | 2017-09-21 08:09 | NUR ---
Shift chart check completed.
[2017-09-21 12:00] VITALS: BP 140/78
[2017-09-21] MEDS ORDERED: AVPAK AZITHROM250 M1 PO (12:57)
[2017-09-21] MEDS ORDERED: PROAIR HFA8.5 GM INH (12:57)
[2017-09-21] MEDS ORDERED: VENTOLIN 02.5 MG/3 M INH (13:02)
--- NOTE | 2017-09-21 13:15 | NUR ---
PATIENT REFUSED ANY D/C PICTURES OF WOUNDS. SHE STATED SHE REFUSED ON ADMISSION AND REFUSED ANY TREATMENT. SHE DOES NOT WANT ANY FOR D/C
--- NOTE | 2017-09-21 13:30 | NUR ---
Discharge instructions reviewed with patient. Patient receptive and verbalizes understanding. Follow-up care arranged. Written instructions given to patient. PATIENT DISCHARGED TO [facility], AMBULATORY, FOR TRANSPORT HOME BY [facility]. AMELIA PETERS
== END 2017-09-21 13:40 | disposition home or self-care (01) | DRG 871 ==
LOC: ED 22:01 → EDHOLD 09-20 00:02 → 5E 09-20 00:08
PROVIDERS: Family Medicine; Physician Assistant; Student in an Organized Health Care Education/Training Program; ADMIT Emergency Medicine
DX: A41.9 Sepsis, unspecified organism (principal); J18.9 Pneumonia, unspecified organism; J96.20 Acute and chronic respiratory failure, unspecified whether with hypoxia or hypercapnia; J44.0 Chronic obstructive pulmonary disease with (acute) lower respiratory infection; J44.1 Chronic obstructive pulmonary disease with (acute) exacerbation; R65.20 Severe sepsis without septic shock; R73.9 Hyperglycemia, unspecified; E87.6 Hypokalemia; I25.10 Atherosclerotic heart disease of native coronary artery without angina pectoris; G89.29 Other chronic pain; Z51.5 Encounter for palliative care; Z66 Do not resuscitate; F17.210 Nicotine dependence, cigarettes, uncomplicated; R91.8 Other nonspecific abnormal finding of lung field; M54.9 Dorsalgia, unspecified; F41.9 Anxiety disorder, unspecified; Z85.3 Personal history of malignant neoplasm of breast; Z85.038 Personal history of other malignant neoplasm of large intestine; Z71.6 Tobacco abuse counseling; Z95.5 Presence of coronary angioplasty implant and graft; Z85.118 Personal history of other malignant neoplasm of bronchus and lung; Z87.442 Personal history of urinary calculi; Z90.49 Acquired absence of other specified parts of digestive tract; Z90.710 Acquired absence of both cervix and uterus; Z98.49 Cataract extraction status, unspecified eye; Z88.0 Allergy status to penicillin; Z79.899 Other long term (current) drug therapy

== ENCOUNTER 2018-01-16 10:59 | Inpatient (IN) | payer MEDICARE, MEDICAID ==
[~2018-01-16] VITALS: Ht 165.1 cm; Wt 81.6 kg
[~2018-01-16 10:59] MED LIST changes: +AVPAK AZITHROM250 M1 PO; +PROAIR HFA8.5 GM INH; +VENTOLIN 02.5 MG/3 M INH
[2018-01-16 11:04] VITALS: BP 154/94
[2018-01-16 11:33] LABS: BASO # 0.1 10*3/uL (0.0-0.1); BASO % 0.8 % (0.0-1.0); EOS # 0.1 10*3/uL (0.0-0.4); HEMATOCRIT 45.7 % (37.0-47.0); HEMOGLOBIN 15.2 g/dl (12.0-16.0); LYMPH # 1.6 10*3/uL (1.3-4.4); LYMPH % 13.8 % (27.0-41.0); MEAN CELL VOLUME 88.9 fl (81.0-99.0); MEAN CORPUSCULAR HGB 29.6 pg (27.0-31.0); MEAN CORPUSCULAR HGB CONC 33.3 g/dl (33.0-37.0); MEAN PLATELET VOLUME 9.8 fl (9.6-12.3); MONO # 0.7 10*3/uL (0.1-1.0); MONO % 5.5 % (3.0-9.0); NEUT # 9.2 10*3/uL (2.3-7.9); NEUT % 78.6 % (47.0-73.0); PLATELET COUNT AUTOMATED 193 10*3/uL (130-400); RED BLOOD COUNT 5.14 10*6/uL (4.10-5.10); RED CELL DISTRI WIDTH 13.2 % (0-14.5); WHITE BLOOD COUNT 11.8 10*3/uL (4.8-10.8)
[2018-01-16 11:47] LABS: BUN 13 mg/dl (7-24); CHLORIDE 105 mmol/L (98-107); CREATININE 0.79 mg/dL (0.55-1.02); POTASSIUM 3.3 mmol/L (3.5-5.1); SODIUM 139 mmol/L (136-145)
[2018-01-16 12:00] VITALS: BP 115/66
[2018-01-16 16:00] VITALS: BP 139/76
[2018-01-16 20:00] VITALS: BP 110/66
[2018-01-17] VITALS: BP 132/71
[2018-01-17 07:01] LABS: BASO % 0.2 % (0.0-1.0); HEMATOCRIT 44.2 % (37.0-47.0); HEMOGLOBIN 13.9 g/dl (12.0-16.0); LYMPH # 1.1 10*3/uL (1.3-4.4); LYMPH % 8.6 % (27.0-41.0); MEAN CELL VOLUME 91.9 fl (81.0-99.0); MEAN CORPUSCULAR HGB 28.9 pg (27.0-31.0); MEAN CORPUSCULAR HGB CONC 31.4 g/dl (33.0-37.0); MEAN PLATELET VOLUME 10.2 fl (9.6-12.3); MONO # 0.3 10*3/uL (0.1-1.0); MONO % 2.5 % (3.0-9.0); NEUT # 11.1 10*3/uL (2.3-7.9); PLATELET COUNT AUTOMATED 193 10*3/uL (130-400); RED BLOOD COUNT 4.81 10*6/uL (4.10-5.10); RED CELL DISTRI WIDTH 13.2 % (0-14.5); WHITE BLOOD COUNT 12.6 10*3/uL (4.8-10.8)
[2018-01-17 07:29] LABS: ALBUMIN 3.5 gm/dl (3.1-4.5); BUN 20 mg/dl (7-24); CHLORIDE 102 mmol/L (98-107); CREATININE 0.86 mg/dL (0.55-1.02); LIPASE 58 U/L (73-393); PHOSPHOROUS 2.4 mg/dL (2.5-4.9); SGOT/AST 19 IU/L (3-35); SGPT/ALT 34 U/L (12-78); SODIUM 137 mmol/L (136-145); TOTAL PROTEIN 7.4 gm/dL (6.4-8.2)
[2018-01-17 07:30] LABS: ALKALINE PHOSPHATASE 94 U/L (45-117)
[2018-01-17 07:33] LABS: POTASSIUM 4.7 mmol/L (3.5-5.1)
[2018-01-17 08:00] VITALS: BP 111/79
[2018-01-17 08:54] LABS: VITAMIN D, 25-HYDROXY 12.7 ng/mL (30-100)
[2018-01-17 12:00] VITALS: BP 130/67
[2018-01-17] MEDS ORDERED: DUONEB 3 MG/3 ML3 M1 NEB (12:32)
[2018-01-17] MEDS ORDERED: ZITHROMAX250 MG PO (12:32)
[2018-01-17] MEDS ORDERED: PREDNISONE10 MG PO (12:32)
[2018-01-17] MEDS ORDERED: Percocet 325 MG1 TAB PO (12:32)
[2018-01-17] MEDS ORDERED: DIAZEPAM5 MG PO (12:33)
[2018-01-17] MEDS ORDERED: NEBULIZER (12:35)
[2018-01-17] MEDS ORDERED: PROAIR HFA8.5 GM INH (12:35)
== END 2018-01-17 13:07 | disposition home or self-care (01) | DRG 871 ==
LOC: ED 10:59 → EDHOLD 11:22 → 4E 11:22
PROVIDERS: Emergency Medicine; Internal Medicine
DX: A41.9 Sepsis, unspecified organism (principal); J18.9 Pneumonia, unspecified organism; J96.20 Acute and chronic respiratory failure, unspecified whether with hypoxia or hypercapnia; C50.919 Malignant neoplasm of unspecified site of unspecified female breast; C34.11 Malignant neoplasm of upper lobe, right bronchus or lung; J44.0 Chronic obstructive pulmonary disease with (acute) lower respiratory infection; J44.1 Chronic obstructive pulmonary disease with (acute) exacerbation; Z66 Do not resuscitate; E87.6 Hypokalemia; R65.20 Severe sepsis without septic shock; F41.9 Anxiety disorder, unspecified; F17.210 Nicotine dependence, cigarettes, uncomplicated; N20.0 Calculus of kidney; K57.30 Diverticulosis of large intestine without perforation or abscess without bleeding; Z51.5 Encounter for palliative care; Z88.0 Allergy status to penicillin; Z79.899 Other long term (current) drug therapy; Z85.038 Personal history of other malignant neoplasm of large intestine; Z90.49 Acquired absence of other specified parts of digestive tract; Z90.710 Acquired absence of both cervix and uterus; Z71.6 Tobacco abuse counseling; Z68.29 Body mass index [BMI] 29.0-29.9, adult; Z98.49 Cataract extraction status, unspecified eye; Z95.818 Presence of other cardiac implants and grafts; Z80.9 Family history of malignant neoplasm, unspecified; Z82.49 Family history of ischemic heart disease and other diseases of the circulatory system

== ENCOUNTER 2018-02-11 18:40 | Emergency (ER) | payer MEDICARE, MEDICAID ==
[~2018-02-11] VITALS: Ht 165.1 cm; Wt 81.6 kg
[~2018-02-11 18:40] MED LIST changes: +DUONEB 3 MG/3 ML3 M1 NEB; +NEBULIZER; +PREDNISONE10 MG PO; +Percocet 325 MG1 TAB PO; +ZITHROMAX250 MG PO
[2018-02-11 19:44] LABS: BASO # 0.1 10*3/uL (0.0-0.1); BASO % 0.9 % (0.0-1.0); EOS # 0.2 10*3/uL (0.0-0.4); EOS % 2.3 % (1.0-4.0); HEMATOCRIT 45.4 % (37.0-47.0); LYMPH # 3.1 10*3/uL (1.3-4.4); LYMPH % 30.3 % (27.0-41.0); MEAN CORPUSCULAR HGB 29.4 pg (27.0-31.0); MEAN PLATELET VOLUME 10.3 fl (9.6-12.3); MONO # 0.7 10*3/uL (0.1-1.0); NEUT # 6.1 10*3/uL (2.3-7.9); NEUT % 59.1 % (47.0-73.0); PLATELET COUNT AUTOMATED 180 10*3/uL (130-400); RED CELL DISTRI WIDTH 13.8 % (0-14.5); WHITE BLOOD COUNT 10.4 10*3/uL (4.8-10.8)
[2018-02-11 19:55] LABS: BILIRUBIN NEGATIVE (NEGATIVE); BLOOD NEGATIVE (NEGATIVE); CLARITY CLEAR (CLEAR); COLOR YELLOW (YELLOW); GLUCOSE NEGATIVE (NEGATIVE); KETONE NEGATIVE (NEGATIVE); LEUKO ESTERASE TRACE (NEGATIVE); NITRITE NEGATIVE (NEGATIVE); PH 7.5 (5.0-9.0); SPECIFIC GRAVITY 1.015 (1.005-1.030); UROBILINOGEN 0.2 E.U./dl (0.2-1.0)
[2018-02-11 20:01] LABS: ALBUMIN 3.8 gm/dl (3.1-4.5); ALKALINE PHOSPHATASE 108 U/L (45-117); BUN 25 mg/dl (7-24); CHLORIDE 105 mmol/L (98-107); CREATININE 0.68 mg/dL (0.55-1.02); POTASSIUM 4.1 mmol/L (3.5-5.1); SGOT/AST 21 IU/L (3-35); SGPT/ALT 20 U/L (12-78); SODIUM 141 mmol/L (136-145); TOTAL PROTEIN 7.4 gm/dL (6.4-8.2)
[2018-02-11 20:02] LABS: LIPASE 117 U/L (73-393)
[2018-02-11 20:25] LABS: BACTERIA 1+; EPITHELIAL CELLS 60-65
== END 2018-02-11 21:34 | disposition home or self-care (01) ==
LOC: ED 18:40
PROVIDERS: Student in an Organized Health Care Education/Training Program
DX: R10.9 Unspecified abdominal pain (principal); F17.200 Nicotine dependence, unspecified, uncomplicated; J44.9 Chronic obstructive pulmonary disease, unspecified; Z85.038 Personal history of other malignant neoplasm of large intestine; Z85.118 Personal history of other malignant neoplasm of bronchus and lung; Z95.5 Presence of coronary angioplasty implant and graft; Z98.890 Other specified postprocedural states; Z90.49 Acquired absence of other specified parts of digestive tract; Z85.3 Personal history of malignant neoplasm of breast; Z88.0 Allergy status to penicillin; Z88.8 Allergy status to other drugs, medicaments and biological substances; Z79.899 Other long term (current) drug therapy

== ENCOUNTER 2018-03-06 12:03 | Emergency (ER) | payer MEDICARE, MEDICAID ==
[~2018-03-06] VITALS: Ht 165.1 cm; Wt 72.6 kg
[2018-03-06 12:36] LABS: BASO # 0.1 10*3/uL (0.0-0.1); BASO % 0.7 % (0.0-1.0); EOS # 0.1 10*3/uL (0.0-0.4); EOS % 0.9 % (1.0-4.0); HEMATOCRIT 44.1 % (37.0-47.0); HEMOGLOBIN 14.6 g/dl (12.0-16.0); LYMPH # 2.1 10*3/uL (1.3-4.4); LYMPH % 15.7 % (27.0-41.0); MEAN CELL VOLUME 89.1 fl (81.0-99.0); MEAN CORPUSCULAR HGB 29.5 pg (27.0-31.0); MEAN CORPUSCULAR HGB CONC 33.1 g/dl (33.0-37.0); MEAN PLATELET VOLUME 9.7 fl (9.6-12.3); MONO # 1.1 10*3/uL (0.1-1.0); MONO % 8.2 % (3.0-9.0); PLATELET COUNT AUTOMATED 191 10*3/uL (130-400); RED BLOOD COUNT 4.95 10*6/uL (4.10-5.10); RED CELL DISTRI WIDTH 13.2 % (0-14.5); WHITE BLOOD COUNT 13.6 10*3/uL (4.8-10.8)
[2018-03-06 12:54] LABS: ALBUMIN 3.5 gm/dl (3.1-4.5); ALKALINE PHOSPHATASE 83 U/L (45-117); BUN 14 mg/dl (7-24); CHLORIDE 105 mmol/L (98-107); CREATININE 0.67 mg/dL (0.55-1.02); POTASSIUM 3.9 mmol/L (3.5-5.1); SGOT/AST 15 IU/L (3-35); SGPT/ALT 15 U/L (12-78); SODIUM 140 mmol/L (136-145); TOTAL PROTEIN 7.6 gm/dL (6.4-8.2)
== END 2018-03-06 13:30 | disposition home or self-care (01) ==
LOC: ED 12:03
PROVIDERS: Emergency Medicine
DX: R10.9 Unspecified abdominal pain (principal); M54.5 Low back pain; F17.200 Nicotine dependence, unspecified, uncomplicated; J44.9 Chronic obstructive pulmonary disease, unspecified; Z85.038 Personal history of other malignant neoplasm of large intestine; Z85.118 Personal history of other malignant neoplasm of bronchus and lung; Z95.5 Presence of coronary angioplasty implant and graft; Z98.890 Other specified postprocedural states; Z85.3 Personal history of malignant neoplasm of breast; Z90.49 Acquired absence of other specified parts of digestive tract; Z88.0 Allergy status to penicillin; Z88.6 Allergy status to analgesic agent; Z79.899 Other long term (current) drug therapy

== ENCOUNTER 2018-03-11 12:24 | Emergency (ER) | payer MEDICARE, MEDICAID ==
[~2018-03-11] VITALS: Ht 165.1 cm; Wt 78.9 kg
[2018-03-11 13:27] LABS: BASO # 0.1 10*3/uL (0.0-0.1); BASO % 0.9 % (0.0-1.0); EOS # 0.2 10*3/uL (0.0-0.4); EOS % 2.4 % (1.0-4.0); HEMATOCRIT 45.3 % (37.0-47.0); HEMOGLOBIN 14.5 g/dl (12.0-16.0); LYMPH % 26.3 % (27.0-41.0); MEAN CORPUSCULAR HGB 29.1 pg (27.0-31.0); MEAN PLATELET VOLUME 9.7 fl (9.6-12.3); MONO # 0.5 10*3/uL (0.1-1.0); MONO % 7.2 % (3.0-9.0); NEUT # 4.7 10*3/uL (2.3-7.9); NEUT % 62.5 % (47.0-73.0); PLATELET COUNT AUTOMATED 229 10*3/uL (130-400); RED BLOOD COUNT 4.98 10*6/uL (4.10-5.10); RED CELL DISTRI WIDTH 12.9 % (0-14.5); WHITE BLOOD COUNT 7.5 10*3/uL (4.8-10.8)
[2018-03-11 13:45] LABS: ALBUMIN 3.4 gm/dl (3.1-4.5); ALKALINE PHOSPHATASE 92 U/L (45-117); BUN 12 mg/dl (7-24); CHLORIDE 104 mmol/L (98-107); CREATININE 0.73 mg/dL (0.55-1.02); POTASSIUM 3.9 mmol/L (3.5-5.1); SGOT/AST 17 IU/L (3-35); SGPT/ALT 18 U/L (12-78); SODIUM 141 mmol/L (136-145); TOTAL PROTEIN 7.5 gm/dL (6.4-8.2)
[2018-03-11] MEDS ORDERED: ZOFRAN ODT4 MG SL (14:45)
== END 2018-03-11 14:59 | disposition home or self-care (01) ==
LOC: ED 12:24
PROVIDERS: Family Medicine
DX: K30 Functional dyspepsia (principal); F41.9 Anxiety disorder, unspecified; J44.1 Chronic obstructive pulmonary disease with (acute) exacerbation; J96.00 Acute respiratory failure, unspecified whether with hypoxia or hypercapnia; E87.6 Hypokalemia; Z88.0 Allergy status to penicillin; Z88.8 Allergy status to other drugs, medicaments and biological substances; Z79.899 Other long term (current) drug therapy; Z90.49 Acquired absence of other specified parts of digestive tract; Z85.038 Personal history of other malignant neoplasm of large intestine

== ENCOUNTER 2019-04-28 17:29 | Emergency (ER) | payer MEDICARE, MEDICAID ==
[~2019-04-28] VITALS: Ht 165.1 cm; Wt 81.6 kg
[~2019-04-28 17:29] MED LIST changes: +ATARAX,VISTARIL10 MG PO; +ZOFRAN ODT4 MG SL
== END 2019-04-28 22:03 | disposition home or self-care (01) ==
LOC: ED 17:29
DX: G43.909 Migraine, unspecified, not intractable, without status migrainosus (principal); I25.10 Atherosclerotic heart disease of native coronary artery without angina pectoris; J44.9 Chronic obstructive pulmonary disease, unspecified; F17.200 Nicotine dependence, unspecified, uncomplicated; Z88.0 Allergy status to penicillin; Z88.6 Allergy status to analgesic agent; Z88.8 Allergy status to other drugs, medicaments and biological substances; Z79.899 Other long term (current) drug therapy; Z90.49 Acquired absence of other specified parts of digestive tract

== ENCOUNTER 2019-10-20 14:10 | Emergency (ER) | payer MEDICARE, MEDICAID ==
[~2019-10-20] VITALS: Ht 165.1 cm; Wt 81.6 kg
[2019-10-20 14:50] LABS: BILIRUBIN NEGATIVE (NEGATIVE); BLOOD TRACE-INTACT (NEGATIVE); CLARITY SL CLOUDY (CLEAR); COLOR YELLOW (YELLOW); GLUCOSE NEGATIVE (NEGATIVE); KETONE NEGATIVE (NEGATIVE); LEUKO ESTERASE 1+ (NEGATIVE); NITRITE NEGATIVE (NEGATIVE); PH 5.5 (5.0-9.0); SPECIFIC GRAVITY >= 1.030 (1.005-1.030); UROBILINOGEN 0.2 E.U./dl (0.2-1.0)
[2019-10-20 14:57] LABS: BASO # 0.1 10*3/uL (0.0-0.1); BASO % 1.1 % (0.0-1.0); EOS # 0.2 10*3/uL (0.0-0.4); EOS % 2.6 % (1.0-4.0); HEMATOCRIT 48.3 % (37.0-47.0); HEMOGLOBIN 15.5 g/dl (12.0-16.0); LYMPH # 2.3 10*3/uL (1.3-4.4); LYMPH % 27.1 % (27.0-41.0); MEAN CELL VOLUME 89.9 fl (81.0-99.0); MEAN CORPUSCULAR HGB 28.9 pg (27.0-31.0); MEAN CORPUSCULAR HGB CONC 32.1 g/dl (33.0-37.0); MEAN PLATELET VOLUME 9.8 fl (9.6-12.3); MONO # 0.7 10*3/uL (0.1-1.0); MONO % 7.8 % (3.0-9.0); NEUT # 5.1 10*3/uL (2.3-7.9); NEUT % 61.2 % (47.0-73.0); PLATELET COUNT AUTOMATED 181 10*3/uL (130-400); RED BLOOD COUNT 5.37 10*6/uL (4.10-5.10); RED CELL DISTRI WIDTH 13.4 % (0-14.5); WHITE BLOOD COUNT 8.3 10*3/uL (4.8-10.8)
[2019-10-20 15:02] LABS: MUCOUS TRACE
[2019-10-20 15:13] LABS: ALBUMIN 3.7 gm/dl (3.1-4.5); ALKALINE PHOSPHATASE 78 U/L (45-117); BUN 16 mg/dl (7-24); CHLORIDE 108 mmol/L (98-107); CREATININE 0.83 mg/dL (0.55-1.02); POTASSIUM 3.5 mmol/L (3.5-5.1); SGOT/AST 16 IU/L (3-35); SGPT/ALT 25 U/L (12-78); SODIUM 140 mmol/L (136-145); TOTAL PROTEIN 7.2 gm/dL (6.4-8.2)
== END 2019-10-20 16:46 | disposition left against medical advice (07) ==
LOC: ED 14:10
PROVIDERS: Physician Assistant
DX: M54.5 Low back pain (principal); R03.0 Elevated blood-pressure reading, without diagnosis of hypertension; J44.9 Chronic obstructive pulmonary disease, unspecified; G89.29 Other chronic pain; Z88.0 Allergy status to penicillin; Z88.6 Allergy status to analgesic agent; Z88.8 Allergy status to other drugs, medicaments and biological substances; Z79.899 Other long term (current) drug therapy; Z90.710 Acquired absence of both cervix and uterus; Z90.49 Acquired absence of other specified parts of digestive tract; Z87.891 Personal history of nicotine dependence

== ENCOUNTER 2020-03-02 16:01 | Emergency (ER) | payer MEDICARE, MEDICAID ==
[~2020-03-02] VITALS: Ht 165.1 cm; Wt 83.5 kg
[2020-03-02] MEDS ORDERED: PERCOCET 5-3251 EACH PO (16:45)
[2020-03-02] MEDS ORDERED: ROBAXIN-750750 MG PO (16:45)
== END 2020-03-02 18:28 | disposition home or self-care (01) ==
LOC: ED 16:01
DX: S33.5XXA Sprain of ligaments of lumbar spine, initial encounter (principal); S70.02XA Contusion of left hip, initial encounter; J44.9 Chronic obstructive pulmonary disease, unspecified; F17.200 Nicotine dependence, unspecified, uncomplicated; Z88.0 Allergy status to penicillin; Z88.8 Allergy status to other drugs, medicaments and biological substances; Z79.899 Other long term (current) drug therapy; Z90.710 Acquired absence of both cervix and uterus; Z90.49 Acquired absence of other specified parts of digestive tract; W01.0XXA Fall on same level from slipping, tripping and stumbling without subsequent striking against object, initial encounter; Y93.89 Activity, other specified; Y92.89 Other specified places as the place of occurrence of the external cause; Y99.8 Other external cause status

== ENCOUNTER 2020-05-04 09:15 | Emergency (ER) | payer MEDICARE, MEDICAID ==
[~2020-05-04] VITALS: Ht 167.6 cm; Wt 86.2 kg
[~2020-05-04 09:15] MED LIST changes: +PERCOCET 5-3251 EACH PO; +ROBAXIN-750750 MG PO
[2020-05-04 10:02] LABS: BASO # 0.1 10*3/uL (0.0-0.1); BASO % 0.8 % (0.0-1.0); EOS # 0.1 10*3/uL (0.0-0.4); EOS % 1.1 % (1.0-4.0); HEMATOCRIT 45.8 % (37.0-47.0); LYMPH # 1.3 10*3/uL (1.3-4.4); LYMPH % 13.5 % (27.0-41.0); MEAN CELL VOLUME 88.8 fl (81.0-99.0); MEAN CORPUSCULAR HGB 28.3 pg (27.0-31.0); MEAN CORPUSCULAR HGB CONC 31.9 g/dl (33.0-37.0); MEAN PLATELET VOLUME 10.1 fl (9.6-12.3); MONO # 0.6 10*3/uL (0.1-1.0); MONO % 6.2 % (3.0-9.0); NEUT # 7.7 10*3/uL (2.3-7.9); NEUT % 78.1 % (47.0-73.0); PLATELET COUNT AUTOMATED 165 10*3/uL (130-400); RED BLOOD COUNT 5.16 10*6/uL (4.10-5.10); RED CELL DISTRI WIDTH 13.8 % (0-14.5); WHITE BLOOD COUNT 9.8 10*3/uL (4.8-10.8)
[2020-05-04 10:17] LABS: ALBUMIN 3.6 gm/dl (3.1-4.5); ALKALINE PHOSPHATASE 70 U/L (45-117); BUN 17 mg/dl (7-24); CHLORIDE 110 mmol/L (98-107); CREATININE 0.91 mg/dL (0.55-1.02); LIPASE 37 U/L (73-393); POTASSIUM 3.5 mmol/L (3.5-5.1); SGOT/AST 17 IU/L (3-35); SGPT/ALT 24 U/L (12-78); SODIUM 140 mmol/L (136-145); TOTAL PROTEIN 7.1 gm/dL (6.4-8.2)
[2020-05-04 11:16] LABS: BACTERIA TRACE; CLARITY CLEAR (CLEAR); COLOR YELLOW (YELLOW); GLUCOSE NEGATIVE (NEGATIVE); MUCOUS TRACE; RBC 21-30 rbc/hpf (0-2)
[2020-05-04 11:17] LABS: BILIRUBIN NEGATIVE (NEGATIVE); BLOOD TRACE-INTACT (NEGATIVE); KETONE NEGATIVE (NEGATIVE); LEUKO ESTERASE NEGATIVE (NEGATIVE); NITRITE NEGATIVE (NEGATIVE); SPECIFIC GRAVITY 1.025 (1.005-1.030); UROBILINOGEN 0.2 E.U./dl (0.2-1.0)
== END 2020-05-04 15:39 | disposition short-term general hospital (02) ==
LOC: ED 09:15
PROVIDERS: Nurse Practitioner Family
DX: N13.30 Unspecified hydronephrosis (principal); N20.1 Calculus of ureter; J44.9 Chronic obstructive pulmonary disease, unspecified; Z88.0 Allergy status to penicillin; Z88.8 Allergy status to other drugs, medicaments and biological substances; Z79.899 Other long term (current) drug therapy; Z90.710 Acquired absence of both cervix and uterus

== ENCOUNTER 2020-05-23 14:00 | Emergency (ER) | payer MEDICARE, MEDICAID ==
[~2020-05-23] VITALS: Ht 165.1 cm; Wt 85.3 kg
[2020-05-23 14:30] LABS: BASO # 0.1 10*3/uL (0.0-0.1); BASO % 1.1 % (0.0-1.0); EOS # 0.3 10*3/uL (0.0-0.4); EOS % 2.5 % (1.0-4.0); HEMATOCRIT 49.1 % (37.0-47.0); LYMPH # 2.5 10*3/uL (1.3-4.4); LYMPH % 22.7 % (27.0-41.0); MEAN CELL VOLUME 89.3 fl (81.0-99.0); MEAN CORPUSCULAR HGB 29.1 pg (27.0-31.0); MEAN CORPUSCULAR HGB CONC 32.6 g/dl (33.0-37.0); MEAN PLATELET VOLUME 10.2 fl (9.6-12.3); MONO # 0.6 10*3/uL (0.1-1.0); MONO % 5.7 % (3.0-9.0); NEUT # 7.4 10*3/uL (2.3-7.9); NEUT % 67.6 % (47.0-73.0); PLATELET COUNT AUTOMATED 226 10*3/uL (130-400); RED CELL DISTRI WIDTH 13.9 % (0-14.5); WHITE BLOOD COUNT 10.9 10*3/uL (4.8-10.8)
[2020-05-23 14:37] LABS: CLARITY CLOUDY (CLEAR); COLOR ORANGE (YELLOW)
[2020-05-23 14:38] LABS: BILIRUBIN NEGATIVE; BLOOD 3+ (NEGATIVE); GLUCOSE NEGATIVE; KETONE NEGATIVE; LEUKO ESTERASE 2+ (NEGATIVE); NITRITE NEGATIVE (NEGATIVE); PH 6.5 (5.0-9.0); SPECIFIC GRAVITY 1.015 (1.005-1.030); UROBILINOGEN 0.2 E.U./dl (0.2-1.0)
[2020-05-23 14:46] LABS: BACTERIA 2+; MUCOUS 1+; RBC TNTC rbc/hpf (0-2)
[2020-05-23 14:53] LABS: ALKALINE PHOSPHATASE 86 U/L (45-117); BUN 12 mg/dl (7-24); CHLORIDE 108 mmol/L (98-107); CREATININE 0.74 mg/dL (0.55-1.02); SGOT/AST 25 IU/L (3-35); SGPT/ALT 26 U/L (12-78); SODIUM 141 mmol/L (136-145); TOTAL PROTEIN 7.6 gm/dL (6.4-8.2)
[2020-05-23 14:54] LABS: POTASSIUM 4.2 mmol/L (3.5-5.1)
[2020-05-23] MEDS ORDERED: SEPTDS PO (17:04)
[2020-05-23] MEDS ORDERED: PERCOCET 5-3251 EACH PO (17:04)
[2020-05-23] MEDS ORDERED: ZOFRAN4 MG PO (17:04)
== END 2020-05-23 17:11 | disposition home or self-care (01) ==
LOC: ED 14:00
PROVIDERS: Nurse Practitioner Family
DX: N20.1 Calculus of ureter (principal); N39.0 Urinary tract infection, site not specified; J44.9 Chronic obstructive pulmonary disease, unspecified; F17.200 Nicotine dependence, unspecified, uncomplicated; Z88.0 Allergy status to penicillin; Z88.6 Allergy status to analgesic agent; Z88.8 Allergy status to other drugs, medicaments and biological substances

== ENCOUNTER → 2020-06-09 | Outpatient (CLI) | payer MEDICARE, MEDICAID ==
[~2020-06-09] MED LIST changes: +SEPTDS PO
== END | disposition home or self-care (01) ==
LOC: RAD 12:36
PROVIDERS: ATTEND Family Medicine
DX: M19.072 Primary osteoarthritis, left ankle and foot (principal); R22.42 Localized swelling, mass and lump, left lower limb

== ENCOUNTER 2020-07-05 11:02 | Emergency (ER) | payer MEDICARE, MEDICAID ==
[~2020-07-05] VITALS: Wt 86.2 kg
[2020-07-05 11:50] LABS: BILIRUBIN Negative (Negative); BLOOD 3+ (Negative); CLARITY Cloudy (Clear); COLOR Yellow (Yellow); GLUCOSE Negative (Negative); KETONE Negative (Negative); LEUKO ESTERASE 3+ (Negative); NITRITE Negative (Negative); PH 6.5 (4.5-8.0); UROBILINOGEN 0.2 E.U./dl (0.0-1.0)
[2020-07-05 12:41] LABS: BACTERIA 3+; MUCOUS 1+; RBC TNTC rbc/hpf (0-2)
[2020-07-05] MEDS ORDERED: CEPHALEXIN500 M1 PO (13:10)
== END 2020-07-05 13:19 | disposition home or self-care (01) ==
LOC: ED 11:02
PROVIDERS: Nurse Practitioner Family
DX: N39.0 Urinary tract infection, site not specified (principal); M54.5 Low back pain; G89.29 Other chronic pain; J44.9 Chronic obstructive pulmonary disease, unspecified; Z88.0 Allergy status to penicillin; Z88.8 Allergy status to other drugs, medicaments and biological substances; Z79.899 Other long term (current) drug therapy; Z90.710 Acquired absence of both cervix and uterus

== ENCOUNTER 2020-11-25 10:04 | Emergency (ER) | payer MEDICARE, MEDICAID ==
[~2020-11-25] VITALS: Ht 165.1 cm; Wt 86.2 kg
[~2020-11-25 10:04] MED LIST changes: +CEPHALEXIN500 M1 PO
[2020-11-25 10:54] LABS: BILIRUBIN 1+ (Negative); BLOOD 3+ (Negative); CLARITY Turbid (Clear); COLOR Dark Yellow (Yellow); GLUCOSE Negative (Negative); KETONE Trace (Negative); LEUKO ESTERASE 2+ (Negative); NITRITE Negative (Negative); PH 5.5 (4.5-8.0); SPECIFIC GRAVITY 1.025 (1.001-1.030)
[2020-11-25 11:16] LABS: RBC TNTC rbc/hpf (0-2); WBC TNTC wbc/hpf (0-5)
[2020-11-25 11:35] LABS: BASO % 0.6 % (0.0-1.0); EOS % 0.4 % (1.0-4.0); HEMATOCRIT 48.9 % (37.0-47.0); LYMPH # 0.9 10*3/uL (1.3-4.4); LYMPH % 17.2 % (27.0-41.0); MEAN CELL VOLUME 88.1 fl (81.0-99.0); MEAN CORPUSCULAR HGB 28.3 pg (27.0-31.0); MEAN CORPUSCULAR HGB CONC 32.1 g/dl (33.0-37.0); MEAN PLATELET VOLUME 9.6 fl (9.6-12.3); MONO # 0.5 10*3/uL (0.1-1.0); MONO % 9.1 % (3.0-9.0); NEUT # 3.9 10*3/uL (2.3-7.9); NEUT % 72.5 % (47.0-73.0); PLATELET COUNT AUTOMATED 139 10*3/uL (130-400); RED BLOOD COUNT 5.55 10*6/uL (4.10-5.10); RED CELL DISTRI WIDTH 13.5 % (0-14.5); WHITE BLOOD COUNT 5.3 10*3/uL (4.8-10.8)
[2020-11-25 11:53] LABS: ALBUMIN 3.3 gm/dl (3.1-4.5); ALKALINE PHOSPHATASE 66 U/L (45-117); BUN 15 mg/dl (7-24); CHLORIDE 108 mmol/L (98-107); CREATININE 0.82 mg/dL (0.55-1.02); POTASSIUM 3.3 mmol/L (3.5-5.1); SGOT/AST 25 IU/L (3-35); SGPT/ALT 23 U/L (12-78); SODIUM 139 mmol/L (136-145); TOTAL PROTEIN 6.9 gm/dL (6.4-8.2)
== END 2020-11-25 13:02 | disposition left against medical advice (07) ==
LOC: ED 10:04
PROVIDERS: Internal Medicine; Nurse Practitioner Family
DX: R10.9 Unspecified abdominal pain (principal); R10.2 Pelvic and perineal pain; J44.9 Chronic obstructive pulmonary disease, unspecified; F17.200 Nicotine dependence, unspecified, uncomplicated; Z88.0 Allergy status to penicillin; Z88.8 Allergy status to other drugs, medicaments and biological substances; Z79.899 Other long term (current) drug therapy; Z98.890 Other specified postprocedural states; Z90.711 Acquired absence of uterus with remaining cervical stump

== ENCOUNTER 2021-03-09 18:21 | Emergency (ER) | payer MEDICARE, MEDICAID ==
[~2021-03-09] VITALS: Ht 165.1 cm; Wt 81.6 kg
[2021-03-09 18:40] LABS: BASO # 0.1 10*3/uL (0.0-0.1); BASO % 0.9 % (0.0-1.0); EOS # 0.2 10*3/uL (0.0-0.4); EOS % 1.4 % (1.0-4.0); HEMATOCRIT 44.6 % (37.0-47.0); LYMPH # 1.9 10*3/uL (1.3-4.4); LYMPH % 17.2 % (27.0-41.0); MEAN CELL VOLUME 90.8 fl (81.0-99.0); MEAN CORPUSCULAR HGB 28.9 pg (27.0-31.0); MEAN CORPUSCULAR HGB CONC 31.8 g/dl (33.0-37.0); MEAN PLATELET VOLUME 10.3 fl (9.6-12.3); MONO # 0.9 10*3/uL (0.1-1.0); MONO % 8.3 % (3.0-9.0); NEUT # 8.1 10*3/uL (2.3-7.9); NEUT % 71.8 % (47.0-73.0); PLATELET COUNT AUTOMATED 170 10*3/uL (130-400); RED BLOOD COUNT 4.91 10*6/uL (4.10-5.10); RED CELL DISTRI WIDTH 13.6 % (0-14.5); WHITE BLOOD COUNT 11.3 10*3/uL (4.8-10.8)
[2021-03-09 18:55] LABS: ALBUMIN 3.1 gm/dl (3.1-4.5); ALKALINE PHOSPHATASE 85 U/L (45-117); BUN 12 mg/dl (7-24); CHLORIDE 104 mmol/L (98-107); CREATININE 0.73 mg/dL (0.55-1.02); LIPASE 45 U/L (73-393); POTASSIUM 3.2 mmol/L (3.5-5.1); SGOT/AST 23 IU/L (3-35); SGPT/ALT 23 U/L (12-78); SODIUM 140 mmol/L (136-145); TOTAL PROTEIN 7.4 gm/dL (6.4-8.2)
[2021-03-09 18:56] LABS: TROPONIN I < 0.015 ng/ml (<0.045)
[2021-03-09] MEDS ORDERED: VIBRAMYCIN100 MG PO (21:13)
[2021-03-09] MEDS ORDERED: TESSALON PERLE100 M1 PO (21:13)
== END 2021-03-09 21:18 | disposition left against medical advice (07) ==
LOC: ED 18:21
PROVIDERS: Emergency Medicine
DX: J44.1 Chronic obstructive pulmonary disease with (acute) exacerbation (principal); R07.89 Other chest pain; F17.200 Nicotine dependence, unspecified, uncomplicated; Z88.0 Allergy status to penicillin; Z88.6 Allergy status to analgesic agent; Z88.5 Allergy status to narcotic agent; Z79.899 Other long term (current) drug therapy; Z95.5 Presence of coronary angioplasty implant and graft; Z90.710 Acquired absence of both cervix and uterus; Z90.49 Acquired absence of other specified parts of digestive tract; Z98.890 Other specified postprocedural states

== ENCOUNTER 2021-03-10 14:06 | Inpatient (IN) | payer MEDICARE, MEDICAID ==
[~2021-03-10 14:06] MED LIST changes: +TESSALON PERLE100 M1 PO; +VIBRAMYCIN100 MG PO
[2021-03-10 14:16] VITALS: BP 111/54
[2021-03-10 14:27] LABS: BASO # 0.1 10*3/uL (0.0-0.1); BASO % 0.6 % (0.0-1.0); EOS # 0.1 10*3/uL (0.0-0.4); EOS % 0.5 % (1.0-4.0); HEMATOCRIT 41.9 % (37.0-47.0); LYMPH # 1.5 10*3/uL (1.3-4.4); LYMPH % 12.7 % (27.0-41.0); MEAN CELL VOLUME 91.1 fl (81.0-99.0); MEAN CORPUSCULAR HGB 28.7 pg (27.0-31.0); MEAN CORPUSCULAR HGB CONC 31.5 g/dl (33.0-37.0); MEAN PLATELET VOLUME 10.3 fl (9.6-12.3); MONO # 0.9 10*3/uL (0.1-1.0); MONO % 7.4 % (3.0-9.0); NEUT # 9.4 10*3/uL (2.3-7.9); NEUT % 78.3 % (47.0-73.0); PLATELET COUNT AUTOMATED 185 10*3/uL (130-400); RED CELL DISTRI WIDTH 13.6 % (0-14.5)
[2021-03-10 14:53] LABS: ALBUMIN 2.8 gm/dl (3.1-4.5); ALKALINE PHOSPHATASE 73 U/L (45-117); BUN 17 mg/dl (7-24); CHLORIDE 105 mmol/L (98-107); CREATININE 0.93 mg/dL (0.55-1.02); POTASSIUM 3.3 mmol/L (3.5-5.1); SGOT/AST 30 IU/L (3-35); SGPT/ALT 25 U/L (12-78); SODIUM 138 mmol/L (136-145); TOTAL PROTEIN 7.2 gm/dL (6.4-8.2)
[2021-03-10 15:19] LABS: TROPONIN I 0.313 ng/ml (<0.045)
[2021-03-10 15:24] VITALS: BP 119/65
[2021-03-10 16:01] VITALS: BP 119/65; BP 119/651
[2021-03-10 16:22] VITALS: BP 128/68
[2021-03-10 20:00] VITALS: BP 113/59
[2021-03-11] VITALS: BP 121/68
[2021-03-11 06:27] LABS: BASO % 0.4 % (0.0-1.0); EOS % 0.2 % (1.0-4.0); HEMATOCRIT 42.7 % (37.0-47.0); LYMPH # 1.3 10*3/uL (1.3-4.4); LYMPH % 12.1 % (27.0-41.0); MEAN CELL VOLUME 93.6 fl (81.0-99.0); MEAN CORPUSCULAR HGB 28.3 pg (27.0-31.0); MEAN CORPUSCULAR HGB CONC 30.2 g/dl (33.0-37.0); MEAN PLATELET VOLUME 10.2 fl (9.6-12.3); MONO # 0.3 10*3/uL (0.1-1.0); MONO % 3.2 % (3.0-9.0); NEUT # 8.8 10*3/uL (2.3-7.9); NEUT % 83.3 % (47.0-73.0); PLATELET COUNT AUTOMATED 170 10*3/uL (130-400); RED BLOOD COUNT 4.56 10*6/uL (4.10-5.10); RED CELL DISTRI WIDTH 13.3 % (0-14.5); WHITE BLOOD COUNT 10.6 10*3/uL (4.8-10.8)
[2021-03-11 07:04] LABS: ALBUMIN 2.8 gm/dl (3.1-4.5); ALKALINE PHOSPHATASE 70 U/L (45-117); BUN 22 mg/dl (7-24); CHLORIDE 104 mmol/L (98-107); CREATININE 0.64 mg/dL (0.55-1.02); POTASSIUM 4.2 mmol/L (3.5-5.1); SGOT/AST 32 IU/L (3-35); SGPT/ALT 26 U/L (12-78); SODIUM 138 mmol/L (136-145); TOTAL PROTEIN 7.2 gm/dL (6.4-8.2)
[2021-03-11 08:00] VITALS: BP 121/73
[2021-03-11 12:00] VITALS: BP 118/62
[2021-03-11 16:00] VITALS: BP 121/69
[2021-03-11 20:00] VITALS: BP 145/77
[2021-03-12] VITALS: BP 146/77
[2021-03-12 06:10] LABS: BASO % 0.2 % (0.0-1.0); HEMATOCRIT 45.9 % (37.0-47.0); LYMPH # 0.9 10*3/uL (1.3-4.4); LYMPH % 7.1 % (27.0-41.0); MEAN CELL VOLUME 93.7 fl (81.0-99.0); MEAN CORPUSCULAR HGB 27.8 pg (27.0-31.0); MEAN CORPUSCULAR HGB CONC 29.6 g/dl (33.0-37.0); MEAN PLATELET VOLUME 10.8 fl (9.6-12.3); MONO # 0.8 10*3/uL (0.1-1.0); MONO % 6.2 % (3.0-9.0); NEUT # 11.4 10*3/uL (2.3-7.9); NEUT % 85.4 % (47.0-73.0); PLATELET COUNT AUTOMATED 215 10*3/uL (130-400); WHITE BLOOD COUNT 13.3 10*3/uL (4.8-10.8)
[2021-03-12 06:33] LABS: BUN 28 mg/dl (7-24); CHLORIDE 103 mmol/L (98-107); CREATININE 0.73 mg/dL (0.55-1.02); POTASSIUM 4.3 mmol/L (3.5-5.1); SODIUM 140 mmol/L (136-145)
[2021-03-12 08:00] VITALS: BP 152/79
[2021-03-12 12:00] VITALS: BP 142/80
[2021-03-12 15:23] LABS: ABG BASE EXCESS 8.7 mmol/L (-2.0-2.0); ARTERIAL BLOOD GAS PH 7.385 (7.35-7.45); ARTERIAL BLOOD GAS PO2 45.2 (80-90)
[2021-03-12] MEDS ORDERED: PREDNISONE10 MG PO (16:15)
[2021-03-12] MEDS ORDERED: CRESTOR40 M1 PO (16:15)
[2021-03-12] MEDS ORDERED: METOPROLOL SUCC25 M2 PO (16:15)
== END 2021-03-12 16:32 | disposition home or self-care (01) | DRG 871 ==
LOC: ED 14:06 → EDHOLD 14:43 → 4E 16:32
PROVIDERS: Emergency Medicine; Hospitalist; Internal Medicine Cardiovascular Disease; Student in an Organized Health Care Education/Training Program; ADMIT Internal Medicine; ATTEND Internal Medicine
DX: A41.9 Sepsis, unspecified organism (principal); I21.4 Non-ST elevation (NSTEMI) myocardial infarction; J18.9 Pneumonia, unspecified organism; J44.1 Chronic obstructive pulmonary disease with (acute) exacerbation; J96.11 Chronic respiratory failure with hypoxia; J44.0 Chronic obstructive pulmonary disease with (acute) lower respiratory infection; E87.6 Hypokalemia; F41.9 Anxiety disorder, unspecified; G43.909 Migraine, unspecified, not intractable, without status migrainosus; I25.10 Atherosclerotic heart disease of native coronary artery without angina pectoris; Z66 Do not resuscitate; Z51.5 Encounter for palliative care; L30.4 Erythema intertrigo; Z72.0 Tobacco use; Z88.0 Allergy status to penicillin; Z88.8 Allergy status to other drugs, medicaments and biological substances; Z88.4 Allergy status to anesthetic agent; Z85.038 Personal history of other malignant neoplasm of large intestine; Z90.49 Acquired absence of other specified parts of digestive tract; Z98.49 Cataract extraction status, unspecified eye; Z90.710 Acquired absence of both cervix and uterus; Z95.5 Presence of coronary angioplasty implant and graft; Z82.49 Family history of ischemic heart disease and other diseases of the circulatory system; Z80.9 Family history of malignant neoplasm, unspecified; Z99.81 Dependence on supplemental oxygen; Z79.899 Other long term (current) drug therapy

== ENCOUNTER 2021-08-04 15:34 | Inpatient (IN) | payer MEDICARE, MEDICAID ==
[~2021-08-04] VITALS: Ht 162.5 cm; Wt 83.6 kg
[~2021-08-04 15:34] MED LIST changes: +CRESTOR40 M1 PO; +METOPROLOL SUCC25 M2 PO
[2021-08-04 15:38] VITALS: BP 158/74
[2021-08-04 15:50] LABS: BASO # 0.1 10*3/uL (0.0-0.1); BASO % 0.6 % (0.0-1.0); EOS # 0.1 10*3/uL (0.0-0.4); EOS % 0.3 % (1.0-4.0); HEMATOCRIT 47.7 % (37.0-47.0); LYMPH # 1.4 10*3/uL (1.3-4.4); LYMPH % 9.6 % (27.0-41.0); MEAN CELL VOLUME 89.5 fl (81.0-99.0); MEAN CORPUSCULAR HGB 28.7 pg (27.0-31.0); MEAN CORPUSCULAR HGB CONC 32.1 g/dl (33.0-37.0); MEAN PLATELET VOLUME 9.8 fl (9.6-12.3); MONO % 7.2 % (3.0-9.0); NEUT # 11.9 10*3/uL (2.3-7.9); NEUT % 81.7 % (47.0-73.0); PLATELET COUNT AUTOMATED 168 10*3/uL (130-400); RED BLOOD COUNT 5.33 10*6/uL (4.10-5.10); RED CELL DISTRI WIDTH 13.2 % (0-14.5); WHITE BLOOD COUNT 14.5 10*3/uL (4.8-10.8)
[2021-08-04 16:06] LABS: ALKALINE PHOSPHATASE 85 U/L (45-117); BUN 13 mg/dl (7-24); CHLORIDE 102 mmol/L (98-107); CREATININE 0.82 mg/dL (0.55-1.02); POTASSIUM 3.4 mmol/L (3.5-5.1); SGOT/AST 24 IU/L (3-35); SGPT/ALT 23 U/L (12-78); SODIUM 137 mmol/L (136-145); TOTAL PROTEIN 7.7 gm/dL (6.4-8.2)
[2021-08-04 16:07] LABS: TROPONIN I < 0.015 ng/ml (<0.045)
[2021-08-04 16:09] LABS: ACT PARTIAL THROMBO TIME 26.7 SECONDS (20.0-32.1)
[2021-08-04 16:30] VITALS: BP 146/76
[2021-08-04 17:54] VITALS: BP 115/60
[2021-08-04 19:17] VITALS: BP 122/68
[2021-08-04 19:54] LABS: ABG BASE EXCESS -0.1 mmol/L (-2.0-2.0); ARTERIAL BLOOD GAS PH 7.294 (7.35-7.45); ARTERIAL BLOOD GAS PO2 104.2 (80-90)
[2021-08-04 22:01] VITALS: BP 136/74
[2021-08-05 06:17] LABS: BASO # 0.1 10*3/uL (0.0-0.1); BASO % 0.3 % (0.0-1.0); HEMATOCRIT 49.1 % (37.0-47.0); LYMPH # 1.1 10*3/uL (1.3-4.4); LYMPH % 7.6 % (27.0-41.0); MEAN CELL VOLUME 91.6 fl (81.0-99.0); MEAN CORPUSCULAR HGB 28.4 pg (27.0-31.0); MONO # 0.7 10*3/uL (0.1-1.0); MONO % 4.5 % (3.0-9.0); NEUT # 12.6 10*3/uL (2.3-7.9); NEUT % 86.9 % (47.0-73.0); PLATELET COUNT AUTOMATED 199 10*3/uL (130-400); RED BLOOD COUNT 5.36 10*6/uL (4.10-5.10); RED CELL DISTRI WIDTH 13.2 % (0-14.5); WHITE BLOOD COUNT 14.5 10*3/uL (4.8-10.8)
[2021-08-05 06:27] LABS: ALBUMIN 3.1 gm/dl (3.1-4.5); ALKALINE PHOSPHATASE 106 U/L (45-117); BUN 16 mg/dl (7-24); CHLORIDE 104 mmol/L (98-107); CREATININE 0.82 mg/dL (0.55-1.02); SGOT/AST 27 IU/L (3-35); SGPT/ALT 30 U/L (12-78); SODIUM 138 mmol/L (136-145); TOTAL PROTEIN 8.3 gm/dL (6.4-8.2)
[2021-08-05 06:33] LABS: FREE T4 1.22 ng/dl (0.76-1.46); THYROID STIM HORMONE (HS) 0.725 uIU/ml (0.358-4.75)
[2021-08-05 08:00] VITALS: BP 120/74
[2021-08-05 12:00] VITALS: BP 107/67
[2021-08-05 16:00] VITALS: BP 128/72
[2021-08-05 20:00] VITALS: BP 115/69
[2021-08-06] VITALS: BP 114/60
[2021-08-06 08:00] VITALS: BP 134/61
== END 2021-08-06 11:52 | disposition left against medical advice (07) | DRG 871 ==
LOC: ED 15:34 → EDHOLD 17:30 → 4E 18:35
PROVIDERS: Emergency Medicine; Internal Medicine; ADMIT Emergency Medicine; ATTEND Emergency Medicine
DX: A41.9 Sepsis, unspecified organism (principal); J18.9 Pneumonia, unspecified organism; J96.01 Acute respiratory failure with hypoxia; E87.2 Acidosis; E44.1 Mild protein-calorie malnutrition; J44.0 Chronic obstructive pulmonary disease with (acute) lower respiratory infection; J44.1 Chronic obstructive pulmonary disease with (acute) exacerbation; Z20.822 Contact with and (suspected) exposure to COVID-19; R65.20 Severe sepsis without septic shock; E87.6 Hypokalemia; R73.9 Hyperglycemia, unspecified; E83.41 Hypermagnesemia; R91.8 Other nonspecific abnormal finding of lung field; F17.210 Nicotine dependence, cigarettes, uncomplicated; F41.9 Anxiety disorder, unspecified; I25.10 Atherosclerotic heart disease of native coronary artery without angina pectoris; Z66 Do not resuscitate; Z53.29 Procedure and treatment not carried out because of patient's decision for other reasons; I25.2 Old myocardial infarction; Z90.49 Acquired absence of other specified parts of digestive tract; Z95.5 Presence of coronary angioplasty implant and graft; Z71.6 Tobacco abuse counseling; Z90.710 Acquired absence of both cervix and uterus; Z82.49 Family history of ischemic heart disease and other diseases of the circulatory system; Z88.0 Allergy status to penicillin; Z88.8 Allergy status to other drugs, medicaments and biological substances; Z79.51 Long term (current) use of inhaled steroids; Z79.899 Other long term (current) drug therapy; Z51.5 Encounter for palliative care; M94.0 Chondrocostal junction syndrome [Tietze]

== ENCOUNTER 2022-03-19 17:46 | Emergency (ER) | payer MEDICARE, MEDICAID ==
[~2022-03-19] VITALS: Ht 165.1 cm; Wt 79.4 kg
[2022-03-19 19:03] LABS: BASO # 0.1 10*3/uL (0.0-0.1); EOS # 0.1 10*3/uL (0.0-0.4); EOS % 1.6 % (1.0-4.0); HEMATOCRIT 44.9 % (37.0-47.0); LYMPH # 0.5 10*3/uL (1.3-4.4); LYMPH % 7.4 % (27.0-41.0); MEAN CELL VOLUME 87.5 fl (81.0-99.0); MEAN CORPUSCULAR HGB 28.3 pg (27.0-31.0); MEAN CORPUSCULAR HGB CONC 32.3 g/dl (33.0-37.0); MEAN PLATELET VOLUME 9.4 fl (9.6-12.3); MONO # 0.7 10*3/uL (0.1-1.0); MONO % 10.2 % (3.0-9.0); NEUT # 5.6 10*3/uL (2.3-7.9); NEUT % 79.4 % (47.0-73.0); PLATELET COUNT AUTOMATED 144 10*3/uL (130-400); RED BLOOD COUNT 5.13 10*6/uL (4.10-5.10); RED CELL DISTRI WIDTH 13.6 % (0-14.5)
[2022-03-19 19:18] LABS: ALKALINE PHOSPHATASE 72 U/L (45-117); BUN 14 mg/dl (7-24); CHLORIDE 107 mmol/L (98-107); CREATININE 0.75 mg/dL (0.55-1.02); POTASSIUM 3.6 mmol/L (3.5-5.1); SGOT/AST 17 IU/L (3-35); SGPT/ALT 17 U/L (12-78); SODIUM 139 mmol/L (136-145); TOTAL PROTEIN 6.7 gm/dL (6.4-8.2)
== END 2022-03-19 22:23 | disposition home or self-care (01) ==
LOC: ED 17:46
PROVIDERS: Physician Assistant
DX: R51.9 Headache, unspecified (principal); R11.0 Nausea

== ENCOUNTER 2022-09-29 07:33 | Emergency (ER) | payer MEDICARE, MEDICAID ==
[2022-09-29] MEDS ORDERED: HYDROCODONE-AC1 EAC1 PO (09:17)
== END 2022-09-29 09:50 | disposition home or self-care (01) ==
LOC: ED 07:33
DX: R91.8 Other nonspecific abnormal finding of lung field (principal); Z88.0 Allergy status to penicillin; Z88.8 Allergy status to other drugs, medicaments and biological substances; Z98.890 Other specified postprocedural states; Z90.49 Acquired absence of other specified parts of digestive tract; Z87.891 Personal history of nicotine dependence

== ENCOUNTER → 2022-10-09 | Outpatient (CLI) | payer MEDICARE, MEDICAID ==
[~2022-10-09] MED LIST changes: +HYDROCODONE-AC1 EAC1 PO
[2022-10-09 13:22] LABS: BASO # 0.1 10*3/uL (0.0-0.1); BASO % 1.3 % (0.0-1.0); EOS # 0.2 10*3/uL (0.0-0.4); EOS % 2.9 % (1.0-4.0); HEMATOCRIT 44.9 % (37.0-47.0); LYMPH # 1.8 10*3/uL (1.3-4.4); LYMPH % 24.3 % (27.0-41.0); MEAN CELL VOLUME 89.6 fl (81.0-99.0); MEAN CORPUSCULAR HGB 28.5 pg (27.0-31.0); MEAN CORPUSCULAR HGB CONC 31.8 g/dl (33.0-37.0); MEAN PLATELET VOLUME 9.3 fl (9.6-12.3); MONO # 0.4 10*3/uL (0.1-1.0); MONO % 5.6 % (3.0-9.0); NEUT # 4.9 10*3/uL (2.3-7.9); NEUT % 65.2 % (47.0-73.0); PLATELET COUNT AUTOMATED 336 10*3/uL (130-400); RED BLOOD COUNT 5.01 10*6/uL (4.10-5.10); RED CELL DISTRI WIDTH 13.8 % (0-14.5); RETICULOCYTE % 1.25 % (0.50-2.50); WHITE BLOOD COUNT 7.5 10*3/uL (4.8-10.8)
[2022-10-09 13:24] LABS: BILIRUBIN Negative (Negative); BLOOD Negative (Negative); CLARITY Clear (Clear); COLOR Yellow (Yellow); GLUCOSE Negative (Negative); KETONE Negative (Negative); LEUKO ESTERASE Trace (Negative); NITRITE Negative (Negative); UROBILINOGEN 0.2 E.U./dl (0.0-1.0)
[2022-10-09 13:40] LABS: ALKALINE PHOSPHATASE 72 U/L (46-116); BUN 13 mg/dl (9-23); CHLORIDE 102 mmol/L (98-107); CHOLESTEROL 174 mg/dL (<200); GAMMA GLUTAMYL TRANSPEPTIDASE 16 U/L (0-73); LDL CHOLESTEROL 117 mg/dL (9-159); POTASSIUM 4.4 mmol/L (3.4-5.1); T3 UPTAKE 24.7 % (22.4-36.7); THYROID STIM HORMONE (HS) 1.683 uIU/ml (0.550-4.780); THYROXINE (T4) TOTAL 10.7 ug/dl (4.5-10.9); TOTAL PROTEIN 7.4 gm/dL (6.0-8.0); TRIGLYCERIDES 102 mg/dl (<150)
[2022-10-09 13:45] LABS: SGPT/ALT < 7 U/L (10-49)
[2022-10-09 14:25] LABS: BACTERIA TRACE
[2022-10-09 14:37] LABS: VITAMIN D, 25-HYDROXY 24.7 ng/mL (30-100)
== END | disposition home or self-care (01) ==
LOC: LAB 12:24
PROVIDERS: ATTEND Family Medicine
DX: E78.5 Hyperlipidemia, unspecified (principal); R79.89 Other specified abnormal findings of blood chemistry; E55.9 Vitamin D deficiency, unspecified; R53.83 Other fatigue; R74.8 Abnormal levels of other serum enzymes; R06.02 Shortness of breath

== ENCOUNTER → 2022-12-31 | Outpatient (CLI) | payer MEDICARE, MEDICAID | END | disposition home or self-care (01) | LOC: RAD 08:14 | PROVIDERS: ATTEND Family Medicine | DX: M25.462 Effusion, left knee (principal); M25.712 Osteophyte, left shoulder; M25.711 Osteophyte, right shoulder; M47.816 Spondylosis without myelopathy or radiculopathy, lumbar region; M25.78 Osteophyte, vertebrae ==

== ENCOUNTER → 2024-03-23 | Outpatient (CLI) | payer OTHER, MEDICAID | END | disposition home or self-care (01) | LOC: RAD 08:18 | PROVIDERS: ATTEND Family Medicine | DX: M19.011 Primary osteoarthritis, right shoulder (principal) ==

== ENCOUNTER → 2024-06-19 | Outpatient (CLI) | payer OTHER, MEDICAID | END | disposition home or self-care (01) | LOC: RAD 07:51 | PROVIDERS: ATTEND Family Medicine | DX: M81.0 Age-related osteoporosis without current pathological fracture (principal); M54.50 Low back pain, unspecified; F17.210 Nicotine dependence, cigarettes, uncomplicated; Z90.710 Acquired absence of both cervix and uterus ==

== ENCOUNTER 2024-09-12 10:09 | Emergency (ER) | payer OTHER, MEDICAID ==
[~2024-09-12] VITALS: Ht 165.1 cm; Wt 70.3 kg
[2024-09-12] MEDS ORDERED: Metoclopramide Hydrochloride 10 MG/2 ML VIAL IV ONE (10:45)
[2024-09-12] MEDS ORDERED: SODIUM CHLORIDE 0.9% 1,000 ML IV ONE (10:45)
[2024-09-12] MEDS ORDERED: methylPREDNISolone sod succ 125 MG VIAL IV ONE (10:45)
[2024-09-12] MEDS ORDERED: diphenhydrAMINE hydrochloride 50 MG/ML VIAL IV ONE (10:45)
[2024-09-12] MEDS ORDERED: ACETAMINOPHEN 325 MG TAB PO ONE (10:45)
[2024-09-12 11:04] LABS: BASO # 0.1 10*3/uL (0.0-0.1); BASO % 1.1 % (0.0-1.0); EOS # 0.1 10*3/uL (0.0-0.4); EOS % 0.9 % (1.0-4.0); MEAN CELL VOLUME 87.1 fl (81.0-99.0); MEAN CORPUSCULAR HGB 27.2 pg (27.0-31.0); MEAN CORPUSCULAR HGB CONC 31.3 g/dl (33.0-37.0); MEAN PLATELET VOLUME 9.7 fl (9.6-12.3); MONO # 0.5 10*3/uL (0.1-1.0); NEUT # 5.3 10*3/uL (2.3-7.9); NEUT % 79.2 % (47.0-73.0); PLATELET COUNT AUTOMATED 159 10*3/uL (130-400); RED BLOOD COUNT 5.51 10*6/uL (4.10-5.10); RED CELL DISTRI WIDTH 13.7 % (0-14.5); WHITE BLOOD COUNT 6.7 10*3/uL (4.8-10.8)
[2024-09-12 11:21] LABS: ALKALINE PHOSPHATASE 79 U/L (46-116); BUN 13 mg/dl (9-23); CHLORIDE 104 mmol/L (98-107); SGPT/ALT 9 U/L (5-49)
[2024-09-12] MEDS ORDERED: PREDNISONE50 MG PO (14:20)
[2024-09-12] MEDS ORDERED: AVPAK AZITHROM250 M1 PO (14:24)
== END 2024-09-12 14:22 | disposition home or self-care (01) ==
LOC: ED 10:09
PROVIDERS: Internal Medicine
DX: J44.9 Chronic obstructive pulmonary disease, unspecified (principal); F17.200 Nicotine dependence, unspecified, uncomplicated; Z20.822 Contact with and (suspected) exposure to COVID-19; Z87.442 Personal history of urinary calculi; Z88.0 Allergy status to penicillin; Z88.8 Allergy status to other drugs, medicaments and biological substances; Z90.49 Acquired absence of other specified parts of digestive tract; Z90.710 Acquired absence of both cervix and uterus; Z95.5 Presence of coronary angioplasty implant and graft; Z98.890 Other specified postprocedural states

== ENCOUNTER 2024-11-11 18:42 | Emergency (ER) | payer OTHER, MEDICAID ==
[~2024-11-11] VITALS: Ht 165.1 cm; Wt 63.0 kg
[~2024-11-11 18:42] MED LIST changes: +OMNICEF300 MG PO; +PREDNISONE50 MG PO
[2024-11-11] MEDS ORDERED: methylPREDNISolone sod succ 125 MG VIAL IV ONE (18:45)
[2024-11-11] MEDS ORDERED: Albuterol Sulf/Ipratropium 3 ML VIAL NEB ONE (18:45)
[2024-11-11 19:05] LABS: BASO % 0.6 % (0.0-1.0); HEMATOCRIT 47.1 % (37.0-47.0); MEAN CELL VOLUME 88.4 fl (81.0-99.0); MEAN CORPUSCULAR HGB 27.4 pg (27.0-31.0); MEAN PLATELET VOLUME 9.4 fl (9.6-12.3); MONO # 0.6 10*3/uL (0.1-1.0); NEUT % 64.2 % (47.0-73.0); PLATELET COUNT AUTOMATED 99 10*3/uL (130-400); RED BLOOD COUNT 5.33 10*6/uL (4.10-5.10); RED CELL DISTRI WIDTH 14.7 % (0-14.5); WHITE BLOOD COUNT 4.6 10*3/uL (4.8-10.8)
[2024-11-11 19:26] LABS: ALKALINE PHOSPHATASE 66 U/L (46-116); BUN 27 mg/dl (9-23); CHLORIDE 102 mmol/L (98-107); POTASSIUM 3.3 mmol/L (3.4-5.1); SGPT/ALT 17 U/L (5-49); TOTAL PROTEIN 6.9 gm/dL (6.0-8.0)
[2024-11-11] MEDS ORDERED: POTASSIUM CHLORIDE 20 MEQ TAB PO ONE (20:20)
[2024-11-11] MEDS ORDERED: HYDROCODONE-AC1 EAC1 PO (20:22)
[2024-11-11] MEDS ORDERED: MORPHINE S100 MG/5 M SL (20:23)
[2024-11-11] MEDS ORDERED: DIAZEPAM10 M1 PO (20:23)
[2024-11-11] MEDS ORDERED: ATIVAN0.5 MG PO (20:24)
[2024-11-11] MEDS ORDERED: TYLENOL325 M2 PO (20:24)
[2024-11-11] MEDS ORDERED: AVPAK AZITHROM250 M1 PO (20:36)
[2024-11-11] MEDS ORDERED: PREDNISONE20 M1 PO (20:36)
== END 2024-11-11 21:38 | disposition hospice, home (50) ==
LOC: ED 18:42
PROVIDERS: Nurse Practitioner Family
DX: J44.1 Chronic obstructive pulmonary disease with (acute) exacerbation (principal); I25.10 Atherosclerotic heart disease of native coronary artery without angina pectoris; G43.909 Migraine, unspecified, not intractable, without status migrainosus; Z20.822 Contact with and (suspected) exposure to COVID-19; F41.9 Anxiety disorder, unspecified; F17.210 Nicotine dependence, cigarettes, uncomplicated; Z88.0 Allergy status to penicillin; Z88.8 Allergy status to other drugs, medicaments and biological substances; Z90.49 Acquired absence of other specified parts of digestive tract; Z98.890 Other specified postprocedural states; Z90.710 Acquired absence of both cervix and uterus

== ENCOUNTER → 2025-09-03 | Outpatient (CLI) | payer OTHER, MEDICAID ==
[~2025-09-03] MED LIST changes: +ASPIRIN ADULT L81 M2 PO; +ATIVAN0.5 MG PO; +ATORVASTATIN CA40 M1 PO; +DIAZEPAM10 M1 PO; +LOPRESSOR25 MG PO; +MORPHINE S100 MG/5 M SL; +PREDNISONE20 M1 PO; +TYLENOL325 M2 PO
== END | disposition home or self-care (01) ==
LOC: RAD 13:17
PROVIDERS: ATTEND Family Medicine
DX: M50.30 Other cervical disc degeneration, unspecified cervical region (principal)

== ENCOUNTER 2025-09-11 15:40 | Inpatient (IN) | payer OTHER, MEDICAID ==
[~2025-09-11] VITALS: Ht 165.1 cm; Wt 64.6 kg
[~2025-09-11 15:40] MED LIST changes: -ASPIRIN ADULT L81 M2 PO; -ATORVASTATIN CA40 M1 PO; -LOPRESSOR25 MG PO
[2025-09-11 15:47] VITALS: BP 167/76
[2025-09-11] MEDS ORDERED: Albuterol Sulf/Ipratropium 3 ML VIAL NEB ONE (16:05)
[2025-09-11 16:29] LABS: BASO # 0.1 10*3/uL (0.0-0.1); BASO % 0.5 % (0.0-1.0); EOS # 0.1 10*3/uL (0.0-0.4); EOS % 0.7 % (1.0-4.0); MEAN CELL VOLUME 89.2 fl (81.0-99.0); MEAN CORPUSCULAR HGB 28.5 pg (27.0-31.0); MEAN PLATELET VOLUME 9.4 fl (9.6-12.3); MONO # 0.9 10*3/uL (0.1-1.0); MONO % 8.8 % (3.0-9.0); NEUT # 8.1 10*3/uL (2.3-7.9); NEUT % 78.4 % (47.0-73.0); NUCLEATED RED BLOOD CELL 0.0 % (0.0-0.0); NUCLEATED RED BLOOD CELL 0.0 10*3/uL (0.0-0.0); PLATELET COUNT AUTOMATED 176 10*3/uL (130-400); RED CELL DISTRI WIDTH 13.2 % (0-14.5)
[2025-09-11 16:52] LABS: BUN 13 mg/dl (9-23); CPK 478 U/L (34-171)
[2025-09-11 17:41] LABS: BILIRUBIN Negative (Negative); BLOOD Negative (Negative); CLARITY Clear (Clear); COLOR Dark Yellow (Yellow); KETONE Negative (Negative); LEUKO ESTERASE 1+ (Negative); NITRITE Negative (Negative); PH 6.0 (4.5-8.0); SPECIFIC GRAVITY 1.020 (1.001-1.030); UROBILINOGEN 2.0 E.U./dl (0.0-1.0)
[2025-09-11] MEDS ORDERED: ASPIRIN 325 MG TAB PO ONE (17:50)
[2025-09-11 17:53] LABS: BACTERIA TRACE; RBC 0-2 rbc/hpf (0-2)
[2025-09-11] MEDS ORDERED: IOHEXOL 350 MG/ML 100 ML VIAL IV ONE ×2 (17:55→18:21)
[2025-09-11] MEDS ORDERED: SODIUM CHLORIDE 0.9% 100 ML BAG IV ONE (17:55)
[2025-09-11] MEDS ORDERED: SODIUM CHLORIDE 0.9% 100 ML IV ONE (18:21)
[2025-09-11 19:56] VITALS: BP 106/47
[2025-09-11 20:40] VITALS: BP 153/72
[2025-09-11] MEDS ORDERED: Ondansetron Hydrochloride 4 MG/2 ML VIAL IV PRN (20:45)
[2025-09-11] MEDS ORDERED: BISACODYL 5 MG TAB PO PRN (20:45)
[2025-09-11] MEDS ORDERED: Acetaminophen/Hydrocodone 5 MG/325 MG TABLET PO PRN (20:45)
[2025-09-11] MEDS ORDERED: BISACODYL 10 MG SUPP R PRN (20:45)
[2025-09-11] MEDS ORDERED: TEMAZEPAM 15 MG CAP PO PRN ×2 (20:45→21:20)
[2025-09-11] MEDS ORDERED: ACETAMINOPHEN 325 MG TAB PO PRN (20:45)
[2025-09-11] MEDS ORDERED: ACETAMINOPHEN 650 MG SUPP R PRN (20:45)
[2025-09-11] MEDS ORDERED: DIAZEPAM5 MG PO (21:01)
[2025-09-11] MEDS ORDERED: diazePAM 5 MG TAB PO PRN (21:10)
[2025-09-12] VITALS: BP 108/59
[2025-09-12] MEDS ORDERED: SODIUM CHLORIDE 0.9% 1,000 ML IV ONE (00:30)
[2025-09-12 03:13] VITALS: BP 115/81
[2025-09-12 05:42] LABS: BUN 17 mg/dl (9-23); FREE T4 1.10 ng/dl (0.89-1.76); LDL CHOLESTEROL 95 mg/dL (9-159); SGPT/ALT 32 U/L (5-49)
[2025-09-12 06:03] LABS: CPK 244 U/L (34-171)
[2025-09-12 06:13] LABS: BASO # 0.0 10*3/uL (0.0-0.1); BASO % 0.3 % (0.0-1.0); EOS # 0.0 10*3/uL (0.0-0.4); EOS % 0.0 % (1.0-4.0); MEAN CELL VOLUME 90.5 fl (81.0-99.0); MEAN CORPUSCULAR HGB 28.4 pg (27.0-31.0); MEAN PLATELET VOLUME 9.9 fl (9.6-12.3); MONO # 0.4 10*3/uL (0.1-1.0); MONO % 4.6 % (3.0-9.0); NEUT # 7.3 10*3/uL (2.3-7.9); NEUT % 84.7 % (47.0-73.0); NUCLEATED RED BLOOD CELL 0.0 % (0.0-0.0); NUCLEATED RED BLOOD CELL 0.0 10*3/uL (0.0-0.0); PLATELET COUNT AUTOMATED 183 10*3/uL (130-400); RED CELL DISTRI WIDTH 13.1 % (0-14.5)
[2025-09-12 06:26] LABS: ACT PARTIAL THROMBO TIME 26.5 SECONDS (20.0-32.1)
[2025-09-12 06:58] LABS: VITAMIN D, 25-HYDROXY 25.9 ng/mL (30-100)
[2025-09-12 08:00] VITALS: BP 106/55
[2025-09-12] MEDS ORDERED: ASPIRIN ENTERIC COATED 81 MG TAB PO SCH (10:00)
[2025-09-12] MEDS ORDERED: ATORVASTATIN CALCIUM 40 MG TABLET PO SCH (10:00)
[2025-09-12 12:00] VITALS: BP 117/60
[2025-09-12 16:00] VITALS: BP 94/79
[2025-09-12 20:00] VITALS: BP 102/62
[2025-09-13] VITALS: BP 100/70
[2025-09-13 08:00] VITALS: BP 124/65
[2025-09-13 12:00] VITALS: BP 120/60
[2025-09-13] MEDS ORDERED: ATORVASTATIN CA40 M1 PO (13:09)
[2025-09-13] MEDS ORDERED: LOPRESSOR25 MG PO (13:09)
[2025-09-13] MEDS ORDERED: ASPIRIN ADULT L81 M2 PO (13:09)
== END 2025-09-13 14:08 | disposition home or self-care (01) | DRG 281 ==
LOC: ED 15:40 → 4E 18:45 → EDHOLD 18:45 → 4E 20:14
PROVIDERS: Emergency Medicine; Student in an Organized Health Care Education/Training Program; ADMIT Internal Medicine; ATTEND Internal Medicine
DX: I21.4 Non-ST elevation (NSTEMI) myocardial infarction (principal); E44.1 Mild protein-calorie malnutrition; J44.1 Chronic obstructive pulmonary disease with (acute) exacerbation; I25.10 Atherosclerotic heart disease of native coronary artery without angina pectoris; Z66 Do not resuscitate; Z20.822 Contact with and (suspected) exposure to COVID-19; F41.9 Anxiety disorder, unspecified; G43.909 Migraine, unspecified, not intractable, without status migrainosus; F17.210 Nicotine dependence, cigarettes, uncomplicated; R73.9 Hyperglycemia, unspecified; E55.9 Vitamin D deficiency, unspecified; F44.1 Dissociative fugue; Z88.0 Allergy status to penicillin; Z88.8 Allergy status to other drugs, medicaments and biological substances; Z90.49 Acquired absence of other specified parts of digestive tract; Z90.710 Acquired absence of both cervix and uterus; Z82.49 Family history of ischemic heart disease and other diseases of the circulatory system; Z80.9 Family history of malignant neoplasm, unspecified; Z85.3 Personal history of malignant neoplasm of breast; Z71.6 Tobacco abuse counseling; Z85.118 Personal history of other malignant neoplasm of bronchus and lung; Z68.23 Body mass index [BMI] 23.0-23.9, adult